=== PATIENT | female | born 2000 | race Two or more races ===

== ENCOUNTER 2023-10-21 15:51 | Emergency (ER) | payer BC, SELFPAY ==
--- NOTE | 2023-10-21 | ECG_ITS ---
Test Reason : SHORTNESS OF BREATH Blood Pressure : / mmHG Vent. Rate : 095 BPM Atrial Rate : 095 BPM P-R Int : 144 ms QRS Dur : 074 ms QT Int : 334 ms P-R-T Axes : 040 019 000 degrees QTc Int : 419 ms Normal sinus rhythm Normal ECG No previous ECGs available Referred By: Generic ED Physician Electronically Signed By:Dexter Kan
--- NOTE | ~2023-10-21 | XR_ITS ---
EXAMINATION: XR CHEST CLINICAL INFORMATION: Cough and fevers. COMPARISON: None available. TECHNIQUE: Frontal view of the chest was obtained. FINDINGS: The cardiomediastinal silhouette is within normal limits. Lungs mildly hypoexpanded. No consolidation or effusion. No pneumothorax. XR/XR chest 1V IMPRESSION: Clear lungs. No focal pneumonia.
[2023-10-21 16:00] VITALS: BP 106/61; BP 110/78; PULSE 88; PULSE 93; RESP 17; TEMP 37.1; O2SAT 92; O2SAT 99; BMI 33.1
[2023-10-21 16:30] VITALS: BP 103/58; BP 116/70; PULSE 104; PULSE 98
[2023-10-21 16:31] LABS: MANUAL DIFF FLAG NO
[2023-10-21 16:32] VITALS: BP 102/61; PULSE 108
--- NOTE | 2023-10-21 16:33 | PC.NURSE ---
Orthostatic blood pressures done with patient, did well with laying down and sitting but felt as if she was going to pass out when standing.
[2023-10-21 16:34] LABS: Basophils Percent Auto 0.2 % (0-2); Eosinophils Percent Auto 0.4 % (0-4); Hematocrit 33.6 % (37.0-47.0); Hemoglobin 11.3 g/dl (12.0-16.0); Imm Gran Abs Auto 0.03 X10*3/uL (0.00-0.03); Imm Gran Pct Auto 0.3 % (0.0-0.4); Lymphocytes Absolute Auto 1.5 X10*3/uL (1.2-4.9); Lymphocytes Percent Auto 15.7 % (20-40); Mean Corpuscular HGB Conc 33.6 g/dl (31.0-35.0); Mean Corpuscular Hemoglobin 27.6 pg (27.0-33.0); Mean Platelet Volume 10.6 fL (9.4-12.3); Monocytes Percent Auto 10.6 % (2-11); Neutrophils Absolute Auto 6.7 x10*3/uL (2.0-8.3); Neutrophils Percent Auto 72.8 % (45-73); Platelet Count 191 X10*3/uL (160-400); Red Cell Distribution Width 12.5 % (11.0-16.0); White Blood Count 9.2 X10*3/uL (4.8-10.8)
--- NOTE | 2023-10-21 17:03 | ED_ITS ---
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 She feels weak and tired. Notes a cough with sputum that is yellow and streaked with blood at times. She denies travel, exposure, vaccines. No neck pain. Feels weak and dizzy - she tried to get up and passed out today. She currently denies head or neck pain she is not on blood thinners. She feels dizzy when she stands. She has no abdominal pain chest pain, back pain, hardware in her body. MD elicited complaint: fever Onset (ago): day(s) (3) Measured temperature: 104 F Exacerbating factors: nothing Relieving factors: acetaminophen Associated symptoms: chills, cough and nausea Treatments prior to arrival fever: none Related Data Previous Rx's Medication Instructions Recorded amoxicillin 875 mg-potassium 1 tab PO BID #13 tabs 10/21/23 clavulanate 125 mg tablet Allergies Allergy/AdvReac Type Severity Reaction Status Date / Time No Known Allergies Allergy Verified 10/21/23 16:05 Review of Systems 2 Review of Systems: Constitutional : pos Fever, pos Chills, pos Fatigue ENT/Mouth : pos sore throat, pos Rhinorrhea Eyes: No Eye Pain, No Swelling, No Redness Cardiovascular : No Chest Pain, No SOB, No Dyspnea on Exertion Respiratory : pos Cough, pos Sputum Gastrointestinal : pos Nausea, No Vomiting, No Diarrhea, No abdominal Pain Genitourinary : No Dysuria, No Urinary Frequency, No Hematuria, Musculoskeletal : No joint pain, No Myalgias, No Joint Swelling Skin : No Skin Lesions, No rash Neuro : No Weakness, No Numbness, No Dizziness, no Headache, pos syncope Psych : No Anxiety/Panic, No Depression Heme/Lymph: No Bruising, No Bleeding,No Lymphadenopathy Endocrine : No Polyuria, No Polydipsia All other systems reviewed and are negative [facility] Past Medical History Attestation statement: The following information was validated with the patient. Medical History PCOS (polycystic ovarian syndrome) Social History Social History (Updated 10/21/23 @ 17:23 by Noelle Luz DO) Patient Tobacco Use Status: Never used Tobacco Smoked in Last 30 Days: Yes Use of substances other than those prescribed or required for medical reasons: No Advance Directives: No Advance Directives Information Provided: No Patient : No Physical Exam 2 Vital Signs: Vital Signs: Last Vital Signs Temp 98.1 F 10/21/23 21:34 Pulse 79 10/21/23 21:34 Resp 16 10/21/23 21:34 BP 118/69 10/21/23 21:34 Pulse Ox 98 10/21/23 21:34 O2 Del Method Room Air 10/21/23 21:34 BMI result Body Mass Index 33.1 Appearance: Alert. Oriented X3. No acute distress. Eyes: Pupils equal, round and reactive to light. ENT: Pharynx erythema with moderate tonsilar swelling and exudates white on tonsils Neck: Normal inspection. Neck supple. no meningeal signs CVS: Normal heart rate and rhythm. Pulses normal. Respiratory: No respiratory distress. Breath sounds normal. Abdomen: Soft and nontender. Skin: Skin warm and dry. Normal skin color. Normal skin turgor. Extremities: No lower extremity edema. No calf ttp Neuro: Oriented X 3. No motor deficit. No sensory deficit. Course Course Course Narrative: at this time will treat for strep throat clinically looks like strep and has strep odor she also reports sore throat. Medications Administered Discontinued Medications Generic Name Dose Route Start Last Admin Trade Name Freq PRN Reason Stop Dose Admin Potassium Chloride 10 meq in 100 mls @ 100 mls/hr 10/21/23 17:08 10/21/23 18:43 Potassium Chloride/H20 IV 10/21/23 18:07 Infused ONCE ONE Infusion Sodium Chloride 1,000 mls @ 999 mls/hr 10/21/23 17:15 10/21/23 18:44 Ns IV 10/21/23 18:15 Infused .Q1H1M WEN Infusion Ketorolac Tromethamine 15 mg 10/21/23 17:09 10/21/23 17:51 Ketorolac Tromethamine 15 Mg/Ml Vial IVPUSH 10/21/23 17:10 15 mg ONCE ONE Administration Potassium Chloride 40 meq 10/21/23 17:08 10/21/23 17:52 Potassium Chloride Packet 20 Meq Packet PO 10/21/23 17:09 40 meq ONCE ONE Administration Medical Decision Making Medical Decision Making [facility] Narrative: 23 yo female no sig PMH here with c/o fevers x 3 days without meningeal signs, IVDA, hardware in body, , sick contacts - at this time has cough and URI symptoms also felt weak and had syncopal episode has no signs of head or neck trauma will need EKG, labs, mono strep and viral panel testing. I have ordered fluids and toradol. No CP/SOB to suggest ACS or PE not on OCPs Differential Diagnosis Differential Diagnoses: The differential diagnosis associated with the presentation includes viral syndrome, mono, strep, pneumonia Admission/Observation Consideration of admission/observation: Escalation of care including admission/observation considered no fevers, here, viral panel negative, CXR negative, no WBC count, no obvious source at this time - possible mild UTI though no urinary symptoms and has epi cells feels much better Lab Data [facility] Lab Attestation statement: I reviewed the patient's lab results. 10/21/23 16:27 10/21/23 16:27 Labs: Lab Results 10/21/23 10/21/23 10/21/23 Range/Units 16:27 17:42 21:26 WBC 9.2 (4.8-10.8) X10*3/uL RBC 4.10 L (4.20-5.50) X10*6/uL Hgb 11.3 L (12.0-16.0) g/dl Hct 33.6 L (37.0-47.0) % MCV 82.0 (80.0-98.0) fL MCH 27.6 (27.0-33.0) pg MCHC 33.6 (31.0-35.0) g/dl RDW 12.5 (11.0-16.0) % Plt Count 191 (160-400) X10*3/uL MPV 10.6 (9.4-12.3) fL Immature Gran % (Auto) 0.3 (0.0-0.4) % Neut % (Auto) 72.8 (45-73) % Lymph % (Auto) 15.7 L (20-40) % [place] % (Auto) 10.6 (2-11) % Eos % (Auto) 0.4 (0-4) % Baso % (Auto) 0.2 (0-2) % Lymph # (Auto) 1.5 (1.2-4.9) X10*3/uL [place] # (Auto) 1.0 (0.1-1.2) X10*3/uL Eos # (Auto) 0.0 (0.0-0.4) X10*3/uL Baso # (Auto) 0.0 (0.0-0.2) X10*3/uL Abs Immat Gran (auto) 0.03 (0.00-0.03) X10*3/uL Absolute Neuts (auto) 6.7 (2.0-8.3) x10*3/uL Absolute Nucleated RBC 0.000 (0.0-0.012) X10*3/uL Nucleated RBC % (auto) 0.0 (0.0-0.2) /100WBC Sodium 137 (135-145) mmol/L Potassium 3.0 L (3.3-5.1) mmol/L Chloride 104 (96-108) mmol/L Carbon Dioxide 26 (22-29) mmol/L Anion Gap 10 L (12-20) BUN 14 (9-16) mg/dL Creatinine 0.75 (0.5-1.4) mg/dL Estim Creat Clear Calc 121.4 Estimated GFR > 60 Random Glucose 102 (60-115) mg/dL Calcium 9.7 (8.4-10.2) mg/dL Magnesium 2.0 (1.6-2.6) mg/dL Total Bilirubin 0.7 (0.0-1.0) mg/dL Direct Bilirubin 0.3 (0.0-0.5) mg/dL AST 16 (5-31) U/L ALT 9 (0-31) U/L Alkaline Phosphatase 64 (39-117) U/L Total Creatine Kinase 40 (26-140) U/L Total Protein 7.1 (6.5-8.0) g/dL Albumin 4.3 (3.5-5.0) g/dL Lipase 16 (8-78) U/L Urine Color Yellow Urine Appearance Cloudy Urine pH 6.5 (5.0-9.0) Ur Specific [place] 1.015 (1.005-1.025) Urine Protein Trace (Neg-Trace) mg/dL Urine Glucose (UA) Negative (Negative) mg/dL Urine Ketones 40 (Negative) mg/dL Urine Blood Small (1+) H (Negative) Urine Nitrite Negative (Negative) Ur Leukocyte Esterase Negative (Negative) Urine RBC 6-10 H (0-2) /HPF Urine WBC 6-10 H (0-5) /HPF Ur Squamous Epith Cells 6-10 (0-2) /HPF Urine Bacteria 3+ (None Seen) Hyaline Casts 0-2 (0-2) /LPF Monoscreen Negative (Negative) Influenza Type A (PCR) NEGATIVE (Negative) Influenza Type B (PCR) NEGATIVE (Negative) RSV RNA Qual (PCR) NEGATIVE (Negative) SARS-CoV-2 RNA (RT-PCR) NEGATIVE (Negative) S. pyogenes GrpA GIOVANNA Negative (Negative) Independent Interpretation I performed an independent interpretation of an: EKG and Plain X-Ray (no pneumonia) Interpretation: Rate: 85 Rhythm: NSR [place]: normal Normal P waves. Normal RUBY. Normal QRS complex. ST T wave : inverted t wave III, no LEIGHANN qTC: normal prior studies: no acute ischemia The study has been interpreted contemporaneously by me. . Radiology Impression Discussion of test interpretation with radiology: I have reviewed the radiologist's reading. Independent Historian Clinical information obtained from an independent historian. History obtained from or confirmed by: EMS Prescription Management I considered prescription management with: Antibiotic Discharge Plan Discharge Clinical Impression: Acute febrile illness, Acute hypokalemia Pharyngitis Qualifiers: Pharyngitis/tonsillitis etiology: unspecified etiology Qualified Code(s): J02.9 - Acute pharyngitis, unspecified Patient Disposition: Home, Self-Care Instructions: Pharyngitis (ED), Fever in Adults (ED), Hypokalemia (ED) Additional Instructions: potassium was mildly low we repleted it. drink fluids and eat a banana a day. you tested negative for mono, flu, covid and RSV. your exam is concerning for strep throat. while on antibiotic please take an over the counter antibiotic. if no improvement or worse in the next 24 to 48 hours please return. On amoxicillin-clavulanate, softer bowel movements are to be expected. Call your provider if you move your bowels more than 4 times a day, your bowel movements are almost all liquid, or you get a rash.? Prescriptions: New amoxicillin-pot clavulanate 875-125 mg tablet 1 tab PO BID Qty: 13 0RF Stand Alone Forms: Work/School Release
[2023-10-21 17:07] LABS: Alanine Aminotransferase 9 U/L (0-31); Albumin Level 4.3 g/dL (3.5-5.0); Alkaline Phosphatase 64 U/L (39-117); Anion Gap 10 (12-20); Aspartate Amino Transferase 16 U/L (5-31); Bilirubin Direct 0.3 mg/dL (0.0-0.5); Bilirubin Total 0.7 mg/dL (0.0-1.0); Blood Urea Nitrogen 14 mg/dL (9-16); Calcium 9.7 mg/dL (8.4-10.2); Carbon Dioxide 26 mmol/L (22-29); Chloride 104 mmol/L (96-108); Creatinine Clr Calc Pharmacy 121.4; Estimated Glomerular Filt Rate > 60; Glucose Random 102 mg/dL (60-115); Lipase 16 U/L (8-78); Sodium 137 mmol/L (135-145); Total Protein 7.1 g/dL (6.5-8.0)
--- NOTE | 2023-10-21 17:08 | ECG_ITS ---
Test Reason : DYSPNEA Blood Pressure : / mmHG Vent. Rate : 085 BPM Atrial Rate : 085 BPM P-R Int : 144 ms QRS Dur : 066 ms QT Int : 344 ms P-R-T Axes : 050 014 009 degrees QTc Int : 409 ms Normal sinus rhythm Normal ECG When compared with ECG of 21-OCT-2023 16:17, Nonspecific T wave abnormality no longer evident in Anterior leads Referred By: Noelle Luz Electronically Signed By:Dexter Kan
[2023-10-21 17:14] LABS: Influenza A PCR NEGATIVE (Negative); Influenza B PCR NEGATIVE (Negative); Resp Syncy Virus RNA Qual PCR NEGATIVE (Negative); SARS COV2 PCR INHOUSE NEGATIVE (Negative)
[2023-10-21 17:27] VITALS: TEMP 40
[2023-10-21] MEDS: Potassium Chloride/H20 10 MEQ/100 ML PIGGYBACK 100 MEQ IV (17:45)
[2023-10-21] MEDS: Ketorolac Tromethamine 15 MG/ML VIAL IVPUSH (17:51)
[2023-10-21] MEDS: 0.9 % Sodium Chloride 1,000 ML 999 ML IV (17:52)
[2023-10-21] MEDS: Potassium Chloride Packet 20 MEQ PACKET 40 MEQ PO (17:52)
[2023-10-21 19:05] VITALS: O2SAT 97
[2023-10-21 19:10] LABS: IDNOW Serial# 08D9AD1C; Strep A Nucleic Acid Negative (Negative)
[2023-10-21 19:39] LABS: Monotest Negative (Negative)
[2023-10-21 21:34] VITALS: BP 118/69; PULSE 79; RESP 16; TEMP 36.7; O2SAT 98
[2023-10-21 21:34] LABS: Appearance Urine Cloudy; Color Urine Yellow; Glucose Urine UA Negative (Negative); Leukocyte Esterase Urine Negative (Negative); Nitrite Urine Negative (Negative); PH 6.5 (5.0-9.0); Specific Gravity - Urine 1.015 (1.005-1.025); UMIC TRIGGER UACC YES; Urine Blood Small (1+) (Negative); Urine Ketones 40 mg/dL (Negative); Urine Protein Trace mg/dL (Neg-Trace)
[2023-10-21 21:39] LABS: Bacteria Urine 3+ (None Seen); Hyaline Casts Urine 0-2 /LPF (0-2); UACC Culture Trigger YES
[2023-10-21] MEDS: Amoxicillin/Potassium Clav 875 MG TABLET PO (22:41)
== END 2023-10-21 22:50 | disposition home or self-care (01) ==
PROVIDERS: Emergency Provider Emergency Medicine
DX: J02.9 Acute pharyngitis, unspecified (principal); E87.6 Hypokalemia; R50.9 Fever, unspecified; Z20.822 Contact with and (suspected) exposure to COVID-19; Z20.828 Contact with and (suspected) exposure to other viral communicable diseases
CPT/HCPCS: 0241U; 36415; 71045; 80048; 80076; 81001; 82550; 83690; 83735; 85025; 86308; 87086; 87651; 93005; 96365; 96375; 99285; J1885; J3480

== ENCOUNTER → 2023-10-21 16:17 | Outpatient (BNV) | payer SELFPAY | PROVIDERS: Emergency Provider Emergency Medicine; Visit Provider Internal Medicine Cardiovascular Disease | DX: R06.02 Shortness of breath (principal); R50.9 Fever, unspecified | CPT/HCPCS: 93010 ==

== ENCOUNTER 2025-01-09 12:18 | Inpatient (IN) | payer BC, SELFPAY ==
--- NOTE | ~2025-01-09 | CT_ITS ---
CLINICAL HISTORY: abdominal pain CT abdomen and pelvis with contrast Comparison: US/CT/SR - US PELVIC COMPLETE - 01/09/25 15:29 EST US/SR - US ABDOMEN LIMITED - 01/09/25 15:12 EST Findings: No consolidation or effusion. The gallbladder and solid organs are within normal limits. No hydronephrosis or hydroureter. No bowel obstruction, pneumoperitoneum, or pneumatosis. Scattered subcentimeter short axis lymph nodes are identified within the central mesentery and also within the mesentery adjacent to the cecum. There is scattered colonic diverticulosis. No CT evidence for acute diverticulitis. Pelvic contents unremarkable. No bladder wall thickening. Normal appendix. No acute fracture visualized. IMPRESSION: 1. Scattered subcentimeter short axis lymph nodes identified within the central mesentery and also within the mesentery adjacent to the cecum. These findings are nonspecific but may be seen in the setting of mesenteric adenitis. No other CT evidence for an acute inflammatory process identified within the abdomen or pelvis. 2. Colonic diverticulosis. No CT evidence for acute diverticulitis This document has been electronically signed by: Clarke Morillo MD on 01/09/2025 21:28:54
--- NOTE | ~2025-01-09 | NM_ITS ---
EXAMINATION: NM BILIARY TRACT CLINICAL INFORMATION: Possibly calculus cholecystitis. Right upper quadrant pain. COMPARISON: CT abdomen and pelvis with IV contrast 01/01/2025 TECHNIQUE: Allowing intravenous administration of 5 mCi of technetium 99m mebrofenin, imaging over the right upper quadrant was obtained up to 60 minutes. At 60 minutes 1.6 mcg of CCK was administered over 30 minutes via pump and imaging obtained up to 30 minutes. FINDINGS: There is normal hepatic uptake without focal defects. CBD is visualized 60 minutes. Gallbladder is visualized by 1 to 18 minutes. Post-CCK there is small bowel visualized by 21 minutes. Gallbladder ejection fraction post-CCK At 10 minutes is 3%, At 20 minutes is 3%, At 30 minutes is 9%. NM/NM hepatobiliary w pharm IMPRESSION: Abnormal gallbladder ejection fraction of 9% at 30 minutes. Patent cystic duct and CBD. Normal hepatic uptake. Electronically signed by: Bulmaro Naqvi MD 01/12/2025 04:58 PM [facility] [place]
--- NOTE | ~2025-01-09 | US_ITS ---
EXAMINATION: US ABDOMEN LIMITED CLINICAL INFORMATION: Right upper quadrant pain.. COMPARISON: None available. TECHNIQUE: Real-time imaging of the right upper quadrant abdominal viscera. FINDINGS: PANCREAS: No peripancreatic fluid collections. LIVER: Liver measures 13 cm. Normal echotexture. No nodular surface. No solid or cystic lesion. No intrahepatic biliary ductal dilatation.. GALLBLADDER: Fluid-filled contracted. No pericholecystic fluid collection or gallbladder wall thickening. COMMON BILE DUCT: 3 mm.. RIGHT KIDNEY: 12 cm. Normal echotexture. No solid or cystic lesion. No hydronephrosis. Normal renal cortical thickness. Normal flow on color Doppler interrogation of the renal hilum.. FREE FLUID: None. US/US abdomen limited IMPRESSION: No cholelithiasis. No hydronephrosis right kidney. No ascites. Negative exam. Electronically signed by: Zaki Taylor MD 01/09/2025 03:51 PM [facility] [place]
--- NOTE | ~2025-01-09 | US_ITS ---
EXAMINATION: US PELVIS CLINICAL INFORMATION: Pelvic pain, history of PCOS. COMPARISON: None available. TECHNIQUE: Ultrasound of the pelvis is performed using both transabdominal technique only with Doppler. Transvaginal imaging was refused by the patient. FINDINGS: Uterus: The uterus is anteverted and anteflexed, and measures 6.3 x 2.0 x 3.5 cm. Cervix is normal in appearance. The double wall endometrial thickness is 0.3 mm. The uterus is smooth in contour and has normal myometrial echogenicity. No visible fibroid. Adnexa: Both ovaries are visualized. There is normal color flow to the adnexa. There is no ovarian torsion. There is no pelvic ascites or fluid collection. There are no adnexal masses. Right ovary measures 1.6 x 1.7 x 2.0 cm. Volume = 2.7 mL. Normal transabdominal sonographic appearance. Left ovary measures 2.4 x 1.5 x 1.5 cm. Volume = 2.7 mL. Normal transabdominal sonographic appearance. US/US pelvic complete IMPRESSION: Normal transabdominal pelvic ultrasound. Electronically signed by: Tk Kapoor MD 01/09/2025 03:54 PM [facility] [place]
--- NOTE | ~2025-01-09 | MR_ITS ---
CLINICAL HISTORY: abdominal pain, elevated LFTS MRCP WITHOUT GADOLINIUM Comparison: CT/SR - CT ABDOMEN PELVIS W IV CON - 01/09/25 20:31 EST US/SR - US ABDOMEN LIMITED - 01/09/25 15:12 EST Findings: No bile duct dilatation or choledocholithiasis. Common bile duct 4.6 mm diameter. No intraluminal gallbladder filling defect. There is pericholecystic fluid and edema. Pancreas and pancreatic duct are unremarkable. Remaining solid organs and abdominal aorta unremarkable. No bowel obstruction. No focal bony abnormality. IMPRESSION: 1. No biliary ductal dilatation evidence for choledocholithiasis. 2. Pericholecystic fluid and edema with no evidence for choledocholithiasis. The possibility of acalculous cholecystitis is raised. This document has been electronically signed by: Catie Barron DO on 01/10/2025 15:00:14
[2025-01-09 12:34] VITALS: BP 130/70; PULSE 50
[2025-01-09 12:54] VITALS: BP 84/46; PULSE 77; RESP 20; TEMP 36.6; O2SAT 100; BMI 31.2
--- NOTE | 2025-01-09 12:59 | ECG_ITS ---
Test Reason : FALL Blood Pressure : */* mmHG Vent. Rate : 76 BPM Atrial Rate : 76 BPM P-R Int : 162 ms QRS Dur : 70 ms QT Int : 376 ms P-R-T Axes : 50 37 19 degrees QTcB Int : 423 ms Normal sinus rhythm with sinus arrhythmia Normal ECG When compared with ECG of 21-Oct-2023 19:00, No significant change was found Referred By: Generic ED Physician Electronically Signed By: Dexter Kan
[2025-01-09 13:20] LABS: MANUAL DIFF FLAG NO
[2025-01-09 13:22] LABS: Basophils Percent Auto 0.4 % (0-2); Eosinophils Absolute Auto 0.1 X10*3/uL (0.0-0.4); Eosinophils Percent Auto 1.2 % (0-4); Hematocrit 36.4 % (37.0-47.0); Hemoglobin 11.9 g/dl (12.0-16.0); Imm Gran Abs Auto 0.02 X10*3/uL (0.00-0.03); Imm Gran Pct Auto 0.3 % (0.0-0.4); Lymphocytes Absolute Auto 1.4 X10*3/uL (1.2-4.9); Lymphocytes Percent Auto 19.1 % (20-40); Mean Corpuscular HGB Conc 32.7 g/dl (31.0-35.0); Mean Corpuscular Hemoglobin 27.4 pg (27.0-33.0); Mean Corpuscular Volume 83.9 fL (80.0-98.0); Mean Platelet Volume 10.9 fL (9.4-12.3); Monocytes Absolute Auto 0.7 X10*3/uL (0.1-1.2); Neutrophils Absolute Auto 5.3 x10*3/uL (2.0-8.3); Platelet Count 234 X10*3/uL (160-400); Red Blood Count 4.34 X10*6/uL (4.20-5.50); Red Cell Distribution Width 13.2 % (11.0-16.0); White Blood Count 7.5 X10*3/uL (4.8-10.8)
[2025-01-09 14:05] LABS: Albumin Level 3.8 g/dL (3.5-5.0); Alkaline Phosphatase 141 U/L (39-117); Anion Gap 11 (12-20); Aspartate Amino Transferase 1229 U/L (5-31); Bilirubin Total 4.3 mg/dL (0.0-1.0); Blood Urea Nitrogen 8 mg/dL (9-16); Calcium 8.7 mg/dL (8.4-10.2); Carbon Dioxide 25 mmol/L (22-29); Chloride 111 mmol/L (96-108); Estimated Glomerular Filt Rate > 60; Glucose Random 91 mg/dL (60-115); HCG Quantitative < 2 mIU/mL; Potassium 4.1 mmol/L (3.3-5.1); Sodium 143 mmol/L (135-145); Total Protein 6.8 g/dL (6.5-8.0)
[2025-01-09] MEDS: Ketorolac Tromethamine 30 MG/ML VIAL IVPUSH (14:11)
[2025-01-09] MEDS: 0.9 % Sodium Chloride 1,000 ML 999 ML IV (14:12)
[2025-01-09 14:15] LABS: Influenza A PCR NEGATIVE (Negative); Influenza B PCR NEGATIVE (Negative); Resp Syncy Virus RNA Qual PCR NEGATIVE (Negative); SARS COV2 PCR INHOUSE NEGATIVE (Negative)
--- NOTE | 2025-01-09 14:19 | PC.NURSE ---
patient visitor noted to be altering rate of patient normal saline gtt, educated visitor on not touching medical equipment, patient bp noted to be low, educated on flow rate and need for hydration to increase bp. security notified.
[2025-01-09 14:38] LABS: Color Urine Dark Yellow; Glucose Urine UA Negative (Negative); Leukocyte Esterase Urine Small (1+) (Negative); Nitrite Urine Negative (Negative); PH 7.5 (5.0-9.0); Specific Gravity - Urine <= 1.005 (1.005-1.025); UMIC TRIGGER UACC YES; Urine Blood Large (3+) (Negative); Urine Ketones 15 mg/dL (Negative); Urine Protein 100 (2+) mg/dL (Neg-Trace)
[2025-01-09 14:39] LABS: Appearance Urine Hazy
[2025-01-09 14:41] LABS: Alanine Aminotransferase 2133 U/L (0-31)
[2025-01-09 14:44] LABS: Bacteria Urine 1+ (None Seen); Hyaline Casts Urine 0-2 /LPF (0-2); RBC Urine >20 /HPF (0-2); Squamous Epithelial Cell Urine 0-2 /HPF (0-2); UACC Culture Trigger YES
--- NOTE | 2025-01-09 14:44 | ED_ITS ---
HPI - General Adult General Chief complaint: Syncope Stated complaint: FEVER, MULT SYNCOPAL EPISODES PER EMS Time Seen by Provider: 01/09/25 13:31 Source: patient, RN notes reviewed and old records reviewed Mode of arrival: EMS Limitations: no limitations History of Present Illness ED Provider: Riri COURTNEY narrative: 24-year-old female who with past medical history significant for PCOS presents for evaluation of nausea vomiting. The patient reportedly had multiple syncopal episodes this morning when she was trying to go to the bathroom She reports that she has been vomiting for the last few days and had some abdominal discomfort over last 2 days as well. She was seen GI several times due to ongoing GI as she was on her still being worked up. She does not have a diagnosis of IBS, IBD, Crohn's but she was told she may have one or more of these. The patient denies any chest pain or shortness of breath. She complains of lower abdominal pain which she attributes to ?pelvic cramping. She has not had her menstrual cycle since August and is irregular due to PCOS. She states that her menstrual cycle started this morning Denies any abnormal vaginal discharge or concern for sexually transmitted infections and she has not had any new sexual partners She has had previous colonoscopies and endoscopies but has never had any abdominal surgeries She denies any Tylenol use Related Data Home Medications ?Medication ?Instructions ?Recorded ?Confirmed No Known Home Meds 01/10/25 01/10/25 Allergies Allergy/AdvReac Type Severity Reaction Status Date / Time amoxicillin Allergy Abdominal Verified 01/09/25 12:58 Pain Review of Systems 2 Constitutional: Constitutional: Denies anorexia, Denies body ache(s), Denies chills, Denies fever(s), Denies frequent falls, Denies headache(s), Reports malaise, Reports weakness and Reports weight loss Eyes: Eyes: Denies blurry vision ENT: Denies vertigo, Denies dizziness and Denies headache(s) Cardiovascular: Cardiovascular: Denies chest pain, Reports syncope and Denies dyspnea Respiratory: Respiratory: Denies dyspnea Gastrointestinal: Gastrointestinal: Reports abdominal pain, Denies diarrhea, Denies loose stools, Reports nausea and Reports vomiting Genitourinary: Genitourinary: Denies vaginal discharge Musculoskeletal: Musculoskeletal: Denies back pain Integumentary/Breasts: Skin/Breast: Denies rash Neurologic: Denies vertigo, Denies dizziness, Reports syncope, Denies frequent falls, Denies headache(s) and Reports weakness PMFSH Past Medical History Medical History Mood disorder Ulcerative colitis PCOS (polycystic ovarian syndrome) Social History Social History Household Members: None Housing: Other Do you presently have visiting nurse or other home services: No Patient Tobacco Use Status: Current everyday Tobacco user Tobacco use type: Cigarette service: No Physical Exam ED Vital Signs: Vital Signs - 24 hr 01/09/25 12:54 01/09/25 15:06 01/09/25 19:03 Temperature 97.8 F 97.9 F Pulse Rate 77 87 72 Respiratory Rate 20 20 18 Blood Pressure 84/46 L 117/79 120/76 Pulse Oximetry 100 98 100 Oxygen Delivery Method Room Air Room Air Room Air BMI result Body Mass Index 31.2 Const General: healthy appearing, comfortable, no acute distress, alert and awake Nutritional Appearance: well nourished Orientation/consciousness: patient oriented x3 HENMT Head: Yes normocephalic and Yes atraumatic Eyes Eyelids: Yes eyelids normal Conjunctivae: conjunctivae normal Sclerae: sclerae normal Corneas: corneas normal Pupils: Equal, round and reactive pupils present EOM: EOMs intact bilaterally Neck Neck: Yes full ROM Resp Effort & Inspection: normal respiratory effort, able to speak in complete sentences and not labored GI Inspection: No distended Palpation (GI): Soft to palpation, not firm, Tenderness to palpation present (GI) in the LLQ, in the RLQ and suprapubicly; not in the LUQ, not in the RUQ and Tsark's sign negative, no guarding and not rigid Skin General skin exam: elasticity normal Neuro General: patient oriented x3 Cranial nerves: Yes Equal, round and reactive pupils present and Yes Bilaterally intact EOM present Cognition (Neuro): normal cognition Extrem Other: Moving all extremities well without any obvious deformities Course Reevaluation(s) Reevaluation #1: CT scan shows mesenteric adenitis but no other significant findings. I restart to GI again, Dr. Vazquez who has no further recommendations at this time but agrees with admission to trend LFTs. Time: 21:34 Medications Administered Generic Name Dose Route Start Last Admin Trade Name Matt PRN Reason Stop Dose Admin Ceftriaxone Sodium 1 gm 01/09/25 23:45 01/11/25 00:04 Ceftriaxone Sodium 1 Gm Vial IVPUSH 1 gm Q24H WEN Administration Metronidazole 500 mg in 100 mls @ 100 mls/hr 01/10/25 20:00 01/11/25 04:15 Flagyl IV Infused Q8H WEN Infusion Melatonin 6 mg 01/09/25 22:03 01/10/25 02:51 Melatonin 3 Mg Tablet PO 6 mg BEDTIME PRN Administration Insomnia Morphine Sulfate 2 mg 01/10/25 17:29 01/10/25 18:14 Morphine Sulfate 2 Mg/Ml Cartridge IVPUSH 2 mg Q6H PRN Administration Pain, Severe (Pain Scale 7-10) Protocol Ondansetron HCl 4 mg 01/09/25 22:03 01/10/25 22:58 Ondansetron Hcl 4 Mg/2 Ml Vial IVPUSH 4 mg Q8H PRN Administration Nausea and Vomiting Sodium Chloride 3 ml 01/10/25 00:00 01/11/25 08:15 0.9 % Sodium Chloride Flush 3 Ml Syringe IVFLUSH Not Given QSHIFT WEN Discontinued Medications Generic Name Dose Route Start Last Admin Trade Name Matt PRN Reason Stop Dose Admin Sodium Chloride 1,000 mls @ 999 mls/hr 01/09/25 14:00 01/09/25 15:05 Ns IV 01/09/25 15:00 Infused .Q1H1M WEN Infusion Lactated Ringer's 1,000 mls @ 999 mls/hr 01/09/25 22:15 01/10/25 07:15 Lr IV 01/09/25 23:15 Infused .Q1H1M WEN Infusion Lactated Ringer's 1,000 mls @ 999 mls/hr 01/11/25 07:15 01/11/25 10:41 Lr IV 01/11/25 08:15 Infused .Q1H1M WEN Infusion Iohexol 100 ml 01/09/25 20:40 01/09/25 20:40 Iohexol 350 Mg/Ml 100 Ml Infus..Btl IV 01/09/25 20:41 85 ml ONCE ONE Administration Ketorolac Tromethamine 30 mg 01/09/25 13:55 01/09/25 14:11 Ketorolac Tromethamine 30 Mg/Ml Vial IVPUSH 01/09/25 13:56 30 mg ONCE ONE Administration Ondansetron HCl 4 mg 01/09/25 20:16 01/09/25 21:07 Ondansetron Hcl 4 Mg/2 Ml Vial IVPUSH 01/09/25 20:17 4 mg ONCE ONE Administration Ondansetron HCl 4 mg 01/11/25 07:04 01/11/25 08:15 Ondansetron Hcl 4 Mg/2 Ml Vial IVPUSH 01/11/25 07:05 4 mg ONCE ONE Administration Oxycodone HCl 5 mg 01/10/25 11:18 01/10/25 11:59 Oxycodone Hcl Immed Release 5 Mg Tablet PO 5 mg Q6H PRN Administration Pain, Severe (Pain Scale 7-10) Pantoprazole Sodium 40 mg 01/09/25 20:16 01/09/25 21:07 Pantoprazole Sodium 40 Mg/10 Ml Vial IVPUSH 01/09/25 20:17 40 mg ONCE ONE Administration Tramadol HCl 25 mg 01/10/25 02:33 01/10/25 02:51 Tramadol Hcl 50 Mg Tablet PO 01/10/25 02:34 25 mg ONCE ONE Administration Medical Decision Making Medical Decision Making MDM Narrative: 24-year-old female with past medical history significant for PCOS presents for evaluation of mostly vomiting with some mild abdominal pain. She also had 2 syncopal episodes this morning while having bowel movements. She was hypotensive on arrival as low as 84/46 next suspect this is why she had a syncopal episode. Her blood pressure has improved to 1 17/79. She does appear dry we will give her an additional L of IV fluids after the when she got from EMS. She has mostly lower abdominal pain and a history of PCOS we will get an ultrasound to rule out ovarian torsion. The patient denies any STI concerns. Her labs are significant for a significant transaminitis with the total bilirubin of 4.3. She was not have any right upper quadrant tenderness on exam. Lower suspicion for obstructive biliary disease. However, we will still obtain a right upper quadrant ultrasound. I did order hepatitis panel given her recent vomiting and weakness. Differential Diagnosis Differential Diagnoses: The differential diagnosis associated with the presentation includes Hepatitis A Viral enteritis Choledocholithiasis Acute cholecystitis Admission/Observation Consideration of admission/observation: Escalation of care including admission/observation considered Consult Healthcare Provider Management of the patient was discussed with: Community Organization Director (GI, Dr. Vazquez, recommends CT scan and mono screen) Lab Data MDM Lab Attestation statement: I reviewed the patient's lab results. No leukocytosis. The patient has a mild anemia which is consistent with her labs dating back to 10/21/2023. She has no significant left shift. Chemistries are significant for a total bilirubin of 4.3, AST of 1229, ALT of 2133, an alk phos of 141. No significant electrolyte abnormalities warranting intervention 01/10/25 05:53 01/11/25 05:50 Labs: Lab Results 01/09/25 01/09/25 01/09/25 Range/Units 13:16 14:26 15:18 WBC 7.5 (4.8-10.8) X10*3/uL RBC 4.34 (4.20-5.50) X10*6/uL Hgb 11.9 L (12.0-16.0) g/dl Hct 36.4 L (37.0-47.0) % MCV 83.9 (80.0-98.0) fL MCH 27.4 (27.0-33.0) pg MCHC 32.7 (31.0-35.0) g/dl RDW 13.2 (11.0-16.0) % Plt Count 234 (160-400) X10*3/uL MPV 10.9 (9.4-12.3) fL Immature Gran % (Auto) 0.3 (0.0-0.4) % Neut % (Auto) 70.0 (45-73) % Lymph % (Auto) 19.1 L (20-40) % [place] % (Auto) 9.0 (2-11) % Eos % (Auto) 1.2 (0-4) % Baso % (Auto) 0.4 (0-2) % Lymph # (Auto) 1.4 (1.2-4.9) X10*3/uL Price # (Auto) 0.7 (0.1-1.2) X10*3/uL Eos # (Auto) 0.1 (0.0-0.4) X10*3/uL Baso # (Auto) 0.0 (0.0-0.2) X10*3/uL Abs Immat Gran (auto) 0.02 (0.00-0.03) X10*3/uL Absolute Neuts (auto) 5.3 (2.0-8.3) x10*3/uL Absolute Nucleated RBC 0.000 (0.0-0.012) X10*3/uL Nucleated RBC % (auto) 0.0 (0.0-0.2) /100WBC Sodium 143 (135-145) mmol/L Potassium 4.1 (3.3-5.1) mmol/L Chloride 111 H (96-108) mmol/L Carbon Dioxide 25 (22-29) mmol/L Anion Gap 11 L (12-20) BUN 8 L (9-16) mg/dL Creatinine 0.60 (0.5-1.4) mg/dL Estim Creat Clear Calc 146.0 Estimated GFR > 60 Random Glucose 91 (60-115) mg/dL Calcium 8.7 D (8.4-10.2) mg/dL Total Bilirubin 4.3 H (0.0-1.0) mg/dL Direct Bilirubin 3.1 H (0.0-0.5) mg/dL AST 1229 H (5-31) U/L ALT 2133 H (0-31) U/L Alkaline Phosphatase 141 H (39-117) U/L Total Protein 6.8 (6.5-8.0) g/dL Albumin 3.8 (3.5-5.0) g/dL Beta HCG, Quant < 2 mIU/mL Urine Color Dark Yellow Urine Appearance Hazy Urine pH 7.5 (5.0-9.0) Ur Specific [place] <= 1.005 (1.005-1.025) Urine Protein 100 (2+) H (Neg-Trace) mg/dL Urine Glucose (UA) Negative (Negative) mg/dL Urine Ketones 15 (Negative) mg/dL Urine Blood Large (3+) H (Negative) Urine Nitrite Negative (Negative) Ur Leukocyte Esterase Small (1+) H (Negative) Urine RBC >20 H (0-2) /HPF Urine WBC 11-20 H (0-5) /HPF Ur Squamous Epith Cells 0-2 (0-2) /HPF Urine Bacteria 1+ (None Seen) Hyaline Casts 0-2 (0-2) /LPF Urine Opiates Screen Not Detected (Not Detect) Ur Buprenorphine Scrn Not Detected (Not Detect) ng/mL Ur Oxycodone Screen Not Detected (Not Detect) ng/mL Urine Methadone Screen Not Detected (Not Detect) ng/mL Urine Fentanyl Screen Not Detected (Not Detect) Acetaminophen < 3 (<30) mcg/mL Ur Barbiturates Screen Not Detected (Not Detect) Ur Phencyclidine Scrn Not Detected (Not Detect) Ur Amphetamines Screen Not Detected (Not Detect) U Benzodiazepines Scrn Not Detected (Not Detect) Urine Cocaine Screen Not Detected (Not Detect) U Marijuana (THC) Screen Not Detected (Not Detect) Ethyl Alcohol < 10 mg/dL Monoscreen Negative (Negative) Influenza Type A (PCR) NEGATIVE (Negative) Influenza Type B (PCR) NEGATIVE (Negative) RSV RNA Qual (PCR) NEGATIVE (Negative) SARS-CoV-2 RNA (RT-PCR) NEGATIVE (Negative) Discharge Plan Discharge Clinical Impression: Vomiting, Syncope, Transaminitis Patient Disposition: Admitted As Inpatient Interventions: Admission Worksheet (ED) Last Done: 01/09/25 23:57 Discharge Date/Time: 01/10/25 01:04
[2025-01-09 14:58] LABS: Amphetamine Screen Urine Not Detected (Not Detect); Barbiturates, Urine Not Detected (Not Detect); Benzodiazepines Screen Urine Not Detected (Not Detect); Buprenorphine Scr Not Detected (Not Detect); Cannabinoid Screen Urine Not Detected (Not Detect); Cocaine Screen Urine Not Detected (Not Detect); Fentanyl, urine Not Detected (Not Detect); Methadone Screen, Urine Not Detected (Not Detect); Opiate Screen Urine Not Detected (Not Detect); Oxycodone Screen Urine Not Detected (Not Detect); Phencyclidine Screen Urine Not Detected (Not Detect)
[2025-01-09 15:06] VITALS: BP 117/79; PULSE 87; RESP 20; O2SAT 98
[2025-01-09 15:07] LABS: Ethanol < 10 mg/dL
--- OUTSIDE RECORDS SUMMARY | 2025-01-09 15:22 | XMS_ITS ---
Author Organization Unknown Plan of Treatment Patient Care team information Name Category Status Period Participants - - Proposed period not known -
--- NOTE | 2025-01-09 15:30 | PC.NURSE ---
Report taken from Noelle Flower RN
[2025-01-09 16:18] LABS: Acetaminophen LAB < 3 mcg/mL (<30)
[2025-01-09 16:31] LABS: Bilirubin Direct 3.1 mg/dL (0.0-0.5)
[2025-01-09 17:26] LABS: Monotest Negative (Negative)
[2025-01-09 19:03] VITALS: BP 120/76; PULSE 72; RESP 18; TEMP 36.6; O2SAT 100
[2025-01-09] MEDS: iohexoL 350 MG/ML 100 ML INFUS..BTL IV (20:40)
[2025-01-09] MEDS: ondansetron HCL 4 MG/2 ML VIAL IVPUSH (21:07)
[2025-01-09] MEDS: Pantoprazole Sodium 40 MG/10 ML VIAL IVPUSH (21:07)
--- NOTE | 2025-01-09 22:05 | P.HPHOSP_ITS ---
History of Present Illness Date of Service: 01/09/25 Chief Complaint: Abdominal pain, nausea and vomiting This is a 24-year-old female with pertinent history of PCOS, ulcerative colitis not on medications, mood disorder who presents to the emergency department for evaluation of abdominal pain, nausea and vomiting. Patient states her symptoms started 5 days prior to presentation. Patient ate pasta for dinner 1 night and thinks her symptoms started soon after. She has been having epigastric pain which is constant, nonradiating and without any relieving factors. Also has been having nausea and nonbloody emesis. Unable to tolerate p.o. intake due to nausea and vomiting. Does have symptoms of gastroesophageal reflux disease. No history of liver disease in the past. States she does have ulcerative colitis which was diagnosed when she was in [place] but she is not on any medications for it. Did undergo endoscopy/colonoscopy previously. Patient also had an episode of syncope preceded by dizziness lightheadedness on the day of presentation. No chest pain or palpitations prior to the syncopal episode. No jerking movement of extremities. Denies Tylenol use. No new sexual partners. Patient also complains of change in odor of urine and urinary urgency. No fever, chills, shortness of breath, changes in bowel habits. Patient is currently only on as- needed medications for gastroesophageal reflux disease. She stopped taking fluoxetine 1 year ago. In the emergency department, AST, ALT and bilirubin found to be elevated. Gastroenterology was consulted who requested admission Review of Systems 2 Constitutional: Constitutional: Reports fatigue, Reports malaise, Reports poor appetite and Reports weakness Cardiovascular: Cardiovascular: Reports no additional cardiovascular complaints Respiratory: Respiratory: Reports no additional respiratory complaints Gastrointestinal: Gastrointestinal: Reports abdominal pain, Reports nausea and Reports vomiting Genitourinary: Genitourinary: Reports urinary urgency Neurologic: Reports weakness Endocrine: Endocrine: Reports fatigue [facility] Medical History Mood disorder Ulcerative colitis PCOS (polycystic ovarian syndrome) Pertinent family history: Mother: Psoriasis Social History Patient Tobacco Use Status: Never used Tobacco Advance Directives: No Advance Directives Information Provided: Yes Do you have a plan to hurt others: No Plan Meds Allergies Allergy/AdvReac Type Severity Reaction Status Date / Time amoxicillin Allergy Abdominal Verified 01/09/25 12:58 Pain Active Medications: Current Medications Acetaminophen (Acetaminophen 325 Mg Tablet) 650 mg PO Q6H PRN PRN Reason: Pain, Mild 1-3,fever,headache Calcium Carbonate (Calcium Carbonate 750 Mg Tab.Chew) 750 mg PO Q4H PRN PRN Reason: Heartburn Lactated Ringer's (Lr) 1,000 mls @ 999 mls/hr IV .Q1H1M [facility] Stop: 01/09/25 23:15 Magnesium Hydroxide (Milk Of Magnesia 30 Ml Oral.Susp) 30 ml PO DAILY PRN PRN Reason: Constipation Melatonin (Melatonin 3 Mg Tablet) 6 mg PO BEDTIME PRN PRN Reason: Insomnia Ondansetron HCl (Ondansetron Hcl 4 Mg/2 Ml Vial) 4 mg IVPUSH Q8H PRN PRN Reason: Nausea and Vomiting Sodium Chloride (0.9 % Sodium Chloride Flush 3 Ml Syringe) 3 ml IVFLUSH QSHIFT [facility] Physical Exam 2 Vital Signs and Narrative: Vital Signs: Last Vital Signs Temp 97.9 F 01/09/25 19:03 Pulse 72 01/09/25 19:03 Resp 18 01/09/25 19:03 BP 120/76 01/09/25 19:03 Pulse Ox 100 01/09/25 19:03 O2 Del Method Room Air 01/09/25 19:03 BMI result Body Mass Index 31.2 Young female lying in bed in no distress Neck supple, no JVD Regular rate and rhythm, S1-S2 heard Regular breath sounds bilaterally, no wheezing or crackles appreciated Abdomen soft nontender, no guarding, no rigidity Patient is awake, alert and oriented to self, place, time and person ; no focal motor deficit Psych: Normal mood No pedal edema Results Labs 01/09/25 13:16 01/09/25 13:16 Labs: Laboratory Results - last 24 hr 01/09/25 01/09/25 01/09/25 13:16 14:26 15:18 MCV 83.9 MCH 27.4 MCHC 32.7 RDW 13.2 Plt Count 234 MPV 10.9 Immature Gran % (Auto) 0.3 Neut % (Auto) 70.0 Lymph % (Auto) 19.1 L [place] % (Auto) 9.0 Eos % (Auto) 1.2 Baso % (Auto) 0.4 Lymph # (Auto) 1.4 [place] # (Auto) 0.7 Eos # (Auto) 0.1 Baso # (Auto) 0.0 Abs Immat Gran (auto) 0.02 Absolute Neuts (auto) 5.3 Absolute Nucleated RBC 0.000 Nucleated RBC % (auto) 0.0 Anion Gap 11 L Estim Creat Clear Calc 146.0 Estimated GFR > 60 Random Glucose 91 Calcium 8.7 D Total Bilirubin 4.3 H Direct Bilirubin 3.1 H AST 1229 H ALT 2133 H Alkaline Phosphatase 141 H Total Protein 6.8 Albumin 3.8 Beta HCG, Quant < 2 Urine Color Dark Yellow Urine Appearance Hazy Urine pH 7.5 Ur Specific [place] <= 1.005 Urine Protein 100 (2+) H Urine Glucose (UA) Negative Urine Ketones 15 Urine Blood Large (3+) H Urine Nitrite Negative Ur Leukocyte Esterase Small (1+) H Urine RBC >20 H Urine WBC 11-20 H Ur Squamous Epith Cells 0-2 Urine Bacteria 1+ Hyaline Casts 0-2 Urine Opiates Screen Not Detected Ur Buprenorphine Scrn Not Detected Ur Oxycodone Screen Not Detected Urine Methadone Screen Not Detected Urine Fentanyl Screen Not Detected Acetaminophen < 3 Ur Barbiturates Screen Not Detected Ur Phencyclidine Scrn Not Detected Ur Amphetamines Screen Not Detected U Benzodiazepines Scrn Not Detected Urine Cocaine Screen Not Detected U Marijuana (THC) Screen Not Detected Ethyl Alcohol < 10 Monoscreen Negative Influenza Type A (PCR) NEGATIVE Influenza Type B (PCR) NEGATIVE RSV RNA Qual (PCR) NEGATIVE SARS-CoV-2 RNA (RT-PCR) NEGATIVE Imaging Radiologist's Impressions: Impressions Abdomen Ultrasound 01/09/25 15:20 IMPRESSION: No cholelithiasis. No hydronephrosis right kidney. No ascites. Negative exam. Electronically signed by: Zaki Taylor MD 01/09/2025 03:51 PM EST RP Pelvis Ultrasound 01/09/25 15:31 IMPRESSION: Normal transabdominal pelvic ultrasound. Electronically signed by: Tk Kapoor MD 01/09/2025 03:54 PM EST RP Assessment and Plan (1) Acute hepatitis: Status: Acute Plan This is a 24-year-old female with pertinent history of PCOS, ulcerative colitis not on medications, mood disorder who presents to the emergency department for evaluation of abdominal pain, nausea and vomiting. #. Acute hepatitis with conjugated hyperbilirubinemia: Supportive care with crystalloid resuscitation. INR level less than 1.5. Tylenol level okay. Viral hepatitis serology pending. Autoimmune hepatitis panel pending. Consulted Gastroenterology, appreciate assistance #. Intractable nausea and vomiting in the setting of above. #. Syncope, likely orthostatic due to volume loss. Resuscitated with IV crystalloids. Obtain orthostatics in a.m.. Cardiac monitoring. #. Acute UTI: IV ceftriaxone while in the hospital. No sepsis #. Gastroesophageal reflux disease: IV Protonix given in the ER #. Mood disorder: No longer on fluoxetine Med rec pending DVT prophylaxis: None. Low risk. Patient is ambulatory Full code Admit as inpatient and will require two night minimum hospital stay for monitoring of liver enzymes (as above), which is not possible in a lesser acute setting. Quality Stroke Does the patient have a stroke diagnosis?: No VTE Prior VTE?: No VTE Risk Level:: Medical - moderate - high VTE Device Contraindication: Treatment Not Indicated VTE Drug Contraindication: Treatment Not Indicated
[2025-01-09 22:36] VITALS: BP 133/86; PULSE 86; RESP 16; TEMP 36.3; O2SAT 100
[2025-01-09] MEDS: Lactated Ringers 1,000 ML 999 ML IV (22:41)
[2025-01-09 22:59] LABS: INTERNATIONAL NORM RATIO 1.2 (0.9-1.1); Prothrombin Time 13.8 SEC (10.9-12.4)
--- NOTE | 2025-01-09 22:59 | PC.NURSE ---
assumed care of pt at 23:00. report received from Apurva FAY.
[2025-01-09 23:58] LABS: Ammonia 59 umol/L (13-55)
[2025-01-10] VITALS (8 sets, daily range): BP systolic 106–139; BP diastolic 55–85; PULSE 59–93; RESP 16–18; TEMP 36.1–36.8; O2SAT 96–99
[2025-01-10] MEDS: cefTRIAXone sodium 1 GM VIAL IVPUSH (00:12)
[2025-01-10] MEDS: 0.9 % Sodium Chloride Flush 3 ML SYRINGE IVFLUSH ×3 (02:07→23:54)
[2025-01-10] MEDS: traMADoL HCL 50 MG TABLET 25 MG PO (02:51)
[2025-01-10] MEDS: Melatonin 3 MG TABLET 6 MG PO (02:51)
[2025-01-10 06:54] LABS: MANUAL DIFF FLAG NO
[2025-01-10 07:10] LABS: Basophils Percent Auto 0.5 % (0-2); Eosinophils Absolute Auto 0.1 X10*3/uL (0.0-0.4); Eosinophils Percent Auto 2.1 % (0-4); Hematocrit 31.9 % (37.0-47.0); Hemoglobin 10.6 g/dl (12.0-16.0); Imm Gran Abs Auto 0.02 X10*3/uL (0.00-0.03); Imm Gran Pct Auto 0.3 % (0.0-0.4); Lymphocytes Absolute Auto 2.1 X10*3/uL (1.2-4.9); Mean Corpuscular HGB Conc 33.2 g/dl (31.0-35.0); Mean Corpuscular Volume 84.2 fL (80.0-98.0); Mean Platelet Volume 11.9 fL (9.4-12.3); Monocytes Absolute Auto 0.7 X10*3/uL (0.1-1.2); Monocytes Percent Auto 11.1 % (2-11); Neutrophils Absolute Auto 3.4 x10*3/uL (2.0-8.3); Platelet Count 209 X10*3/uL (160-400); Red Blood Count 3.79 X10*6/uL (4.20-5.50); Red Cell Distribution Width 13.3 % (11.0-16.0); White Blood Count 6.3 X10*3/uL (4.8-10.8)
[2025-01-10 07:30] LABS: Albumin Level 3.5 g/dL (3.5-5.0); Alkaline Phosphatase 132 U/L (39-117); Anion Gap 14 (12-20); Aspartate Amino Transferase 888 U/L (5-31); Bilirubin Total 3.6 mg/dL (0.0-1.0); Blood Urea Nitrogen 6 mg/dL (9-16); Calcium 8.7 mg/dL (8.4-10.2); Carbon Dioxide 24 mmol/L (22-29); Chloride 109 mmol/L (96-108); Creatinine Clr Calc Pharmacy 162.3; Estimated Glomerular Filt Rate > 60; Glucose Random 79 mg/dL (60-115); Potassium 4.3 mmol/L (3.3-5.1); Sodium 143 mmol/L (135-145); Total Protein 6.3 g/dL (6.5-8.0)
[2025-01-10 07:35] LABS: Alanine Aminotransferase 1703 U/L (0-31)
--- NOTE | 2025-01-10 08:02 | HO.PM.IMPN ---
Subjective Subjective Date of Service: 01/10/25 Interval History: f/u on abdominal pain, acute hepatitis, n/v, uti reporting feeling better, 03/21, LFTs are trending down Physical Exam Vital Signs: Vital Signs: Last Vital Signs Temp 97.1 F 01/10/25 07:50 Pulse 69 01/10/25 07:50 Resp 16 01/10/25 07:50 BP 113/66 01/10/25 07:50 Pulse Ox 98 01/10/25 07:50 O2 Del Method Room Air 01/10/25 07:50 BMI result Body Mass Index 31.2 Const: Other: General: AO X 3, no acute distress Resp: CTA bilateral CVS: S1,S2,RRR GI: +BS, mild non-specifc tenderness Skin: No rash Neuro: motor grossly intact Psych: appropriate affect Objective Data Active Medications Acetaminophen (Acetaminophen 325 Mg Tablet) 650 mg PO Q6H PRN PRN Reason: Pain, Mild 1-3,fever,headache Calcium Carbonate (Calcium Carbonate 750 Mg Tab.Chew) 750 mg PO Q4H PRN PRN Reason: Heartburn Ceftriaxone Sodium (Ceftriaxone Sodium 1 Gm Vial) 1 gm IVPUSH Q24H [facility] Last Admin: 01/10/25 00:12 Dose: 1 gm Documented By: ULYSSES Magnesium Hydroxide (Milk Of Magnesia 30 Ml Oral.Susp) 30 ml PO DAILY PRN PRN Reason: Constipation Melatonin (Melatonin 3 Mg Tablet) 6 mg PO BEDTIME PRN PRN Reason: Insomnia Last Admin: 01/10/25 02:51 Dose: 6 mg Documented By: RIKKI Ondansetron HCl (Ondansetron Hcl 4 Mg/2 Ml Vial) 4 mg IVPUSH Q8H PRN PRN Reason: Nausea and Vomiting Sodium Chloride (0.9 % Sodium Chloride Flush 3 Ml Syringe) 3 ml IVFLUSH QSHIFT [facility] Last Admin: 01/10/25 02:07 Dose: 3 ml Documented By: RIKKI Labs 01/10/25 05:53 01/10/25 05:53 Labs: Laboratory Results - last 24 hr 01/09/25 01/09/25 01/09/25 13:16 14:26 15:18 MCV 83.9 MCH 27.4 MCHC 32.7 RDW 13.2 Plt Count 234 MPV 10.9 Immature Gran % (Auto) 0.3 Neut % (Auto) 70.0 Lymph % (Auto) 19.1 L [place] % (Auto) 9.0 Eos % (Auto) 1.2 Baso % (Auto) 0.4 Lymph # (Auto) 1.4 [place] # (Auto) 0.7 Eos # (Auto) 0.1 Baso # (Auto) 0.0 Abs Immat Gran (auto) 0.02 Absolute Neuts (auto) 5.3 Absolute Nucleated RBC 0.000 Nucleated RBC % (auto) 0.0 PT INR Anion Gap 11 L Estim Creat Clear Calc 146.0 Estimated GFR > 60 Random Glucose 91 Calcium 8.7 D Total Bilirubin 4.3 H Direct Bilirubin 3.1 H AST 1229 H ALT 2133 H Alkaline Phosphatase 141 H Ammonia Total Protein 6.8 Albumin 3.8 Beta HCG, Quant < 2 Urine Color Dark Yellow Urine Appearance Hazy Urine pH 7.5 Ur Specific [place] <= 1.005 Urine Protein 100 (2+) H Urine Glucose (UA) Negative Urine Ketones 15 Urine Blood Large (3+) H Urine Nitrite Negative Ur Leukocyte Esterase Small (1+) H Urine RBC >20 H Urine WBC 11-20 H Ur Squamous Epith Cells 0-2 Urine Bacteria 1+ Hyaline Casts 0-2 Urine Opiates Screen Not Detected Ur Buprenorphine Scrn Not Detected Ur Oxycodone Screen Not Detected Urine Methadone Screen Not Detected Urine Fentanyl Screen Not Detected Acetaminophen < 3 Ur Barbiturates Screen Not Detected Ur Phencyclidine Scrn Not Detected Ur Amphetamines Screen Not Detected U Benzodiazepines Scrn Not Detected Urine Cocaine Screen Not Detected U Marijuana (THC) Screen Not Detected Ethyl Alcohol < 10 Monoscreen Negative Influenza Type A (PCR) NEGATIVE Influenza Type B (PCR) NEGATIVE RSV RNA Qual (PCR) NEGATIVE SARS-CoV-2 RNA (RT-PCR) NEGATIVE 01/09/25 01/09/25 01/10/25 22:46 23:40 05:53 MCV 84.2 MCH 28.0 MCHC 33.2 RDW 13.3 Plt Count 209 MPV 11.9 Immature Gran % (Auto) 0.3 Neut % (Auto) 53.0 Lymph % (Auto) 33.0 [place] % (Auto) 11.1 H Eos % (Auto) 2.1 Baso % (Auto) 0.5 Lymph # (Auto) 2.1 [place] # (Auto) 0.7 Eos # (Auto) 0.1 Baso # (Auto) 0.0 Abs Immat Gran (auto) 0.02 Absolute Neuts (auto) 3.4 Absolute Nucleated RBC 0.000 Nucleated RBC % (auto) 0.0 PT 13.8 H INR 1.2 H Anion Gap 14 Estim Creat Clear Calc 162.3 Estimated GFR > 60 Random Glucose 79 Calcium 8.7 Total Bilirubin 3.6 H Direct Bilirubin AST 888 H ALT 1703 H Alkaline Phosphatase 132 H Ammonia 59 H Total Protein 6.3 L Albumin 3.5 Beta HCG, Quant Urine Color Urine Appearance Urine pH Ur Specific [place] Urine Protein Urine Glucose (UA) Urine Ketones Urine Blood Urine Nitrite Ur Leukocyte Esterase Urine RBC Urine WBC Ur Squamous Epith Cells Urine Bacteria Hyaline Casts Urine Opiates Screen Ur Buprenorphine Scrn Ur Oxycodone Screen Urine Methadone Screen Urine Fentanyl Screen Acetaminophen Ur Barbiturates Screen Ur Phencyclidine Scrn Ur Amphetamines Screen U Benzodiazepines Scrn Urine Cocaine Screen U Marijuana (THC) Screen Ethyl Alcohol Monoscreen Influenza Type A (PCR) Influenza Type B (PCR) RSV RNA Qual (PCR) SARS-CoV-2 RNA (RT-PCR) Assessment and Plan (1) Vomiting: Status: Acute (2) Transaminitis: Status: Acute (3) Acute hepatitis: Status: Acute Plan This is a 24-year-old female with pertinent history of PCOS, ulcerative colitis not on medications, mood disorder who presents to the emergency department for evaluation of abdominal pain, nausea and vomiting and found to have acute hepatitis Acute hepatitis with conjugated hyperbilirubinemia, DDx viral, toxin LFTs are already treanding down as follow Supportive care with IV hydration, monitor coags follow up viral hepatitis serology pending Avoid Tyleneol for now GI consult Intractable nausea and vomiting in the setting of above. supportive care, PRN antiemetics Syncope, likely orthostatic due to volume loss. IVF, orthostatics radha, cardiac monitoring. Acute UTI: IV ceftriaxone while in the hospital. No sepsis Gastroesophageal reflux disease: IV Protonix given in the ER Mood disorder: No longer on fluoxetine Med rec pending DVT prophylaxis: None. Low risk. Patient is ambulatory Full code Quality Stroke Does the patient have a stroke diagnosis?: No VTE Prior VTE?: No VTE Risk Level:: Medical - moderate - high VTE Device Contraindication: Treatment Not Indicated VTE Drug Contraindication: Treatment Not Indicated
--- NOTE | 2025-01-10 09:54 | PHA.MEDREC ---
Addendum entered by Tonya Arnold liz 01/10/25 10:09: Reviewed by Pharmacist Original Note: Pharmacy Consult ? Medication Reconciliation Pharmacy has completed the medication. reconciliation Spoke with patient to confirm. She takes no prescription medications. She takes Gold-D (pantoprazole 40 mg + Domperidone 30 mg) as needed for acid reflux along with a probiotic taken the same way. She has been using these for the past 4 days post admission. Last had on .
--- NOTE | 2025-01-10 10:18 | PM.GICN ---
History of Present Illness Data of Consult Service Date: 01/10/25 Requesting physician: John Callahan Primary Care Provider: Cristela Barnard MD HPI Reason for consult: jaundice 24-year-old female with history of PCOS, ulcerative colitis not on medications, mood disorder who I am seeing for assessment for jaundice She presented with 5 d of epigastric pain which is constant, coming in waves, nonradiating and without any relieving factors associated with malaise, nausea and non bloody emesis. No fever, chills, shortness of breath, changes in bowel habits. She also lost consciousness and was feeling drowsy with her illness. She was told she had UC dx in [place] at age 14 or so, and has not been on treatment, she was also told it might be crohns. not on OCP, no new meds, no herbal meds and no alcohol or drug use. Returned from [facility] trip about 4 weeks ago. No sick contacts or eating suspicious foods. Review of Systems Review of Systems: Constitutional : No Weight loss, No Fever, No Chills ENT/Mouth : No sore throat, No Rhinorrhea Eyes: No Swelling, No Redness Cardiovascular : No Chest Pain, No SOB, No Edema Respiratory : No Cough, No Sputum, No Wheezing Gastrointestinal : see HPI Genitourinary : NO Dysuria, No Urinary Frequency, No Hematuria, No Urgency Musculoskeletal : no joint pain, No Myalgias, No Joint Swelling Skin : No Skin Lesions, No rash Neuro : No Weakness, No Numbness, No Dizziness, No Headache Psych : No Anxiety/Panic, No Depression Heme/Lymph: No Bruising, No Lymphadenopathy Endocrine : No Polyuria, No Polydipsia All other systems reviewed and are negative. [facility] Past Medical History Medical History Mood disorder Ulcerative colitis PCOS (polycystic ovarian syndrome) Family History Pertinent family history: no fh of liver diease Social History Social History Household Members: None Housing: Other Do you presently have visiting nurse or other home services: No Patient Tobacco Use Status: Current everyday Tobacco user Tobacco use type: Cigarette Meds Allergies Allergy/AdvReac Type Severity Reaction Status Date / Time amoxicillin Allergy Abdominal Verified 01/09/25 12:58 Pain Active Medications: Current Medications Acetaminophen (Acetaminophen 325 Mg Tablet) 650 mg PO Q6H PRN PRN Reason: Pain, Mild 1-3,fever,headache Calcium Carbonate (Calcium Carbonate 750 Mg Tab.Chew) 750 mg PO Q4H PRN PRN Reason: Heartburn Ceftriaxone Sodium (Ceftriaxone Sodium 1 Gm Vial) 1 gm IVPUSH Q24H [facility] Last Admin: 01/10/25 00:12 Dose: 1 gm Magnesium Hydroxide (Milk Of Magnesia 30 Ml Oral.Susp) 30 ml PO DAILY PRN PRN Reason: Constipation Melatonin (Melatonin 3 Mg Tablet) 6 mg PO BEDTIME PRN PRN Reason: Insomnia Last Admin: 01/10/25 02:51 Dose: 6 mg Ondansetron HCl (Ondansetron Hcl 4 Mg/2 Ml Vial) 4 mg IVPUSH Q8H PRN PRN Reason: Nausea and Vomiting Sodium Chloride (0.9 % Sodium Chloride Flush 3 Ml Syringe) 3 ml IVFLUSH QSHIFT [facility] Last Admin: 01/10/25 10:14 Dose: 3 ml Home Medications ?Medication ?Instructions ?Recorded ?Confirmed ?Last Taken ?Type No Known Home Meds 01/10/25 01/10/25 Unknown History Physical Exam Vital Signs: Vital Signs: Last Vital Signs Temp 97.1 F 01/10/25 07:50 Pulse 69 01/10/25 08:33 Resp 16 01/10/25 07:50 BP 113/66 01/10/25 08:33 Pulse Ox 98 01/10/25 07:50 O2 Del Method Room Air 01/10/25 07:50 BMI result Body Mass Index 31.2 EXAM: GENERAL: The patient is well developed and nontoxic. VITAL SIGNS:see workflow HEENT: mildly icteric sclerae, PERRLA, EOMI. Oropharynx clear. Moist mucous membranes. Conjunctivae appear well perfused. No thyroid mass. CHEST: Chest wall is nontender. HEART: Regular rate and rhythm without murmurs. LUNGS: Clear to auscultation bilaterally. ABDOMEN: Soft, positive bowel sounds, nontender, no organomegaly.no flank tenderness SKIN: No rash, no excessive bruising, petechiae, or purpura. NEUROLOGIC: Cranial nerves II-XII intact without motor/sensory deficit. Psych: normal affect Results Labs 01/10/25 05:53 01/10/25 05:53 Labs: Short CBC 01/09/25 01/10/25 Range/Units 13:16 05:53 WBC 7.5 6.3 (4.8-10.8) X10*3/uL Hgb 11.9 L 10.6 L (12.0-16.0) g/dl Hct 36.4 L 31.9 L (37.0-47.0) % Plt Count 234 209 (160-400) X10*3/uL BMP 01/09/25 01/10/25 13:16 05:53 Sodium 143 143 Potassium 4.1 4.3 Chloride 111 H 109 H Carbon Dioxide 25 24 BUN 8 L 6 L Creatinine 0.60 0.54 Calcium 8.7 D 8.7 Liver Function 01/09/25 01/10/25 Range/Units 13:16 05:53 Total Bilirubin 4.3 H 3.6 H (0.0-1.0) mg/dL Direct Bilirubin 3.1 H (0.0-0.5) mg/dL AST 1229 H 888 H (5-31) U/L ALT 2133 H 1703 H (0-31) U/L Alkaline Phosphatase 141 H 132 H (39-117) U/L Albumin 3.8 3.5 (3.5-5.0) g/dL Urine 01/09/25 Range/Units 14:26 Urine Color Dark Yellow Urine Appearance Hazy Urine pH 7.5 (5.0-9.0) Ur Specific [place] <= 1.005 (1.005-1.025) Urine Protein 100 (2+) H (Neg-Trace) mg/dL Urine Glucose (UA) Negative (Negative) mg/dL Assessment and Plan (1) Acute hepatitis: Status: Acute Plan 1/ Acute hepatitis, most likely viral etiology, Hep A strong possibility, other causes EBV. Yellow fever and malaria seem unlikely as it is winter in [place]. Other than infectious etiology, differential would include budd chiaria, Autoimmune, wilsons, toxic liver injury, PSC due to her hx of presumed IBD. Gallstones not seen on initial imaging but her pain appears to be more colicky in nature PLAN: 1/ Await viral serologies and ROLA 2/ Consider MRCP to r/o PSC or other lesions not seen on prior imaging 3/ trend LFT and INR, fluids -avoid hepatotoxins and nsaids Procedures Date of Service Date of Service: 01/10/25
[2025-01-10] MEDS: oxyCODONE HCl Immed Release 5 MG TABLET PO (11:59)
--- NOTE | 2025-01-10 15:12 | MHC.CM.PN ---
PT REPORTS SHE LIVES ALONE AND IS INDEPENDENT WITH CARE SHE HAS NO DME AND NO SERVICES PT DOES NOT HAVE A HCP, SHE DOES NOT WANT TO COMPLETE ONE AT THIS TIME PCP: RAH WILSON DCP: HOME NO SERVICES VIA [facility]RA/GABRIEL
[2025-01-10] MEDS: Morphine Sulfate 2 MG/ML CARTRIDGE IVPUSH (18:14)
[2025-01-10] MEDS: metroNIDAZOLE/NS 500 MG/100 ML PIGGYBACK 100 MG IV (19:36)
[2025-01-10] MEDS: ondansetron HCL 4 MG/2 ML VIAL IVPUSH (22:58)
[2025-01-11] MEDS: cefTRIAXone sodium 1 GM VIAL IVPUSH ×2 (00:04→22:03)
--- NOTE | 2025-01-11 00:47 | PC.NURSE ---
Patient was c/o of nausea and abd pain, friend @ bedside said she was going in & out of consciousness just before my arrival. patient was visibly conscious when I entered the room but also visibly in discomfort. Vitals were checked and WNL. Zofran was administered for 22:58, patient refused pain meds because she said she thinks they make her feel worse. Pt asked to speak with Dr. Callahan, he was notified. upon reassessment for the zofran patient was lying down in the dark with eyes closed then opened them as I got closer. She said the zofran made her feel a little less nauseous but she still had the feeling & still c/o of abd pain but still declining any meds, just wanting to speak to the doctor.
[2025-01-11] MEDS: metroNIDAZOLE/NS 500 MG/100 ML PIGGYBACK 100 MG IV ×3 (03:07→22:04)
[2025-01-11 03:28] VITALS: BP 113/52; PULSE 58; RESP 18; TEMP 36.6; O2SAT 98
[2025-01-11 07:14] LABS: Albumin Level 3.4 g/dL (3.5-5.0); Alkaline Phosphatase 125 U/L (39-117); Anion Gap 17 (12-20); Aspartate Amino Transferase 610 U/L (5-31); Bilirubin Total 3.2 mg/dL (0.0-1.0); Blood Urea Nitrogen 7 mg/dL (9-16); Calcium 8.4 mg/dL (8.4-10.2); Carbon Dioxide 20 mmol/L (22-29); Chloride 108 mmol/L (96-108); Estimated Glomerular Filt Rate > 60; Glucose Random 71 mg/dL (60-115); Potassium 3.6 mmol/L (3.3-5.1); Sodium 141 mmol/L (135-145); Total Protein 6.1 g/dL (6.5-8.0)
--- NOTE | 2025-01-11 07:24 | HO.PM.IMPN ---
Subjective Subjective Date of Service: 01/11/25 Interval History: Seen in follow-up for acute hepatitis with intractable nausea and vomiting as well as syncope Interval history: Reporting epigastric dysfunction with a burning sensation and reflux. She states she has also been experiencing lightheadedness with nausea but no ongoing vomiting. She states that last night she had multiple episodes where she reportedly lost consciousness which was witnessed by her friend. She states that she has been unable to tolerate p.o.. Has only consumed about 250 mL water since yesterday and has not eaten in any food since last Sunday except for a banana on . She states that she has had similar symptoms in the past and reports a remote history of ulcerative colitis vs crohns diagnosed in [place] but is not on any maintenance medications. Denies any bloody diarrhea. She reports she had some shortness of breath last night with his tightness in her chest when she was feeling dizzy. She does endorse some anxiety but does not feel this is the cause of her symptoms. LFTs downtrending Review of Systems Review of Systems: Yes all other systems are reviewed and are negative Physical Exam Vital Signs: Vital Signs: Last Vital Signs Temp 97.9 F 01/11/25 03:28 Pulse 58 01/11/25 03:28 Resp 18 01/11/25 03:28 BP 113/52 L 01/11/25 03:28 Pulse Ox 98 01/11/25 03:28 O2 Del Method Room Air 01/11/25 03:28 BMI result Body Mass Index 31.2 Constitutional - Awake and Alert, No apparent distress Eyes - PERRLA, EOMI Cardiovascular - S1S2, RRR, No edema Respiratory - Normal lung expansion, Normal respiratory effort, No respiratory distress, CTA bilaterally Gastrointestinal - diffuse abd ttp greatest in the epigastrium. ND; +BS; No rebound or guarding Extremities - no calf tenderness bilaterally, no swelling Skin - Warm/Dry Neurological - Alert & oriented x3 Psychological - Appropriate affect Objective Data Active Medications Calcium Carbonate (Calcium Carbonate 750 Mg Tab.Chew) 750 mg PO Q4H PRN PRN Reason: Heartburn Ceftriaxone Sodium (Ceftriaxone Sodium 1 Gm Vial) 1 gm IVPUSH Q24H [facility] Last Admin: 01/11/25 00:04 Dose: 1 gm Documented By: RIKKI Metronidazole (Flagyl) 500 mg in 100 mls @ 100 mls/hr IV Q8H [facility] Last Infusion: 01/11/25 04:15 Dose: Infused Documented By: RIKKI Lactated Ringer's (Lr) 1,000 mls @ 999 mls/hr IV .Q1H1M [facility] Stop: 01/11/25 08:15 Magnesium Hydroxide (Milk Of Magnesia 30 Ml Oral.Susp) 30 ml PO DAILY PRN PRN Reason: Constipation Melatonin (Melatonin 3 Mg Tablet) 6 mg PO BEDTIME PRN PRN Reason: Insomnia Last Admin: 01/10/25 02:51 Dose: 6 mg Documented By: RIKKI Morphine Sulfate (Morphine Sulfate 2 Mg/Ml Cartridge) 2 mg IVPUSH Q6H PRN; Protocol PRN Reason: Pain, Severe (Pain Scale 7-10) Last Admin: 01/10/25 18:14 Dose: 2 mg Documented By: CAITY Ondansetron HCl (Ondansetron Hcl 4 Mg/2 Ml Vial) 4 mg IVPUSH Q8H PRN PRN Reason: Nausea and Vomiting Last Admin: 01/10/25 22:58 Dose: 4 mg Documented By: RIKKI Oxycodone HCl (Oxycodone Hcl Immed Release 5 Mg Tablet) 5 mg PO Q6H PRN PRN Reason: Pain, Moderate(Pain Scale 4-6) Sodium Chloride (0.9 % Sodium Chloride Flush 3 Ml Syringe) [facility] Last Admin: 01/10/25 23:54 Dose: 3 ml Documented By: RIKKI Labs 01/10/25 05:53 01/11/25 05:50 Labs: Laboratory Results - last 24 hr 01/10/25 01/11/25 05:53 05:50 Anion Gap 14 17 Estim Creat Clear Calc 162.3 151.0 Estimated GFR > 60 > 60 Random Glucose 79 71 Calcium 8.7 8.4 Total Bilirubin 3.6 H 3.2 H AST 888 H 610 H ALT 1703 H Alkaline Phosphatase 132 H 125 H Total Creatine Kinase 28 Total Protein 6.3 L 6.1 L Albumin 3.5 3.4 L Microbiology Microbiology Results: Microbiology 01/09/25 Unknown Urine Culture - Final Urine clean catch - Clean Catch Midstream No growth. Assessment and Plan (1) Vomiting: Status: Acute (2) Transaminitis: Status: Acute (3) Acute hepatitis: Status: Acute Plan This is a 24-year-old female with pertinent history of PCOS, ulcerative colitis not on medications, mood disorder who presents to the emergency department for evaluation of abdominal pain, nausea and vomiting and found to have acute hepatitis Acute hepatitis with conjugated hyperbilirubinemia, DDx viral, toxin LFTs are already treanding down as follow Total bili: 4.3 --> 3.6 --> 3.2 AST: 1229 --> 888 --> 610 ALT: 2133 --> 1703 --> 1320 Alk Phos: 141--> 132 --> 125 Suspect etiology is viral. Per GI : Hep A strong possibility, other causes EBV. Yellow fever and malaria less likely as it is winter in [place]. Other than infectious etiology, differential would include budd chiaria, Autoimmune, wilsons, toxic liver injury, PSC due to her hx of presumed IBD MRCP shows some pericholecystic fluid, no choledocholithiasis. Possible acalculous cholecystitis. IV ceftriaxone and Flagyl (initiated 01/10) for empiric coverage General surgery consult. Plan for HIDA scan tomorrow Trend LFTs Supportive care with IV hydration, monitor coags Intractable nausea and vomiting in the setting of above. supportive care, PRN antiemetics Has not eaten in 7 days with the exception of a banana 3 days ago and not tolerating adequate p.o. fluids Resume IVF, PPN ordered Syncope, likely orthostatic due to volume loss. reportedly had several episodes last night (01/10-2) witnessed by her friend Resume cardiac monitoring IVF, PPN as above Check orthostatics a.m. Question component of anxiety resulting in her lightheadedness. Ativan p.r.n. added Asymptomatic bacteriuria Urine culture negative Will continue ceftriaxone due to above. No UTI Gastroesophageal reflux disease Add omeprazole, Tums p.r.n. Mood disorder: No longer on fluoxetine DVT prophylaxis: None. Low risk. Patient is ambulatory Full code Patient requires ongoing inpatient stay due to p.o. intolerance on PPN with recurrent syncope Quality Stroke Does the patient have a stroke diagnosis?: No VTE Prior VTE?: No VTE Risk Level:: Medical - moderate - high VTE Device Contraindication: Treatment Not Indicated VTE Drug Contraindication: Treatment Not Indicated
[2025-01-11 07:31] LABS: Alanine Aminotransferase 1320 U/L (0-31)
[2025-01-11 07:48] VITALS: BP 123/79; PULSE 63; RESP 18; TEMP 36.3; O2SAT 97
[2025-01-11] MEDS: ondansetron HCL 4 MG/2 ML VIAL IVPUSH (08:15)
[2025-01-11] MEDS: Lactated Ringers 1,000 ML 999 ML IV (08:15)
[2025-01-11 08:27] LABS: Iron 100 mcg/dL (30-160); Percent Iron Saturation 43 % (15-50); Total Iron Binding Capacity 234 mcg/dL (228-428); Unsaturated Iron Binding 134 ug/dL
[2025-01-11 08:39] LABS: Ferritin 239 ng/mL (10-122)
--- NOTE | 2025-01-11 09:07 | PM.CNGS ---
History of Present Illness Consult details Consult date: 01/11/25 Requesting physician: Jazmine Torres Narrative: 24-year-old female patient presenting with complaints of right upper quadrant abdominal pain radiating into the right back associated with nausea and vomiting. The symptoms started on Sunday and progress over the last several days. She reports anorexia and has not been able to eat most of the week. She reports a recent travel to [facility] to visit with family although denies any sick contacts and never had any symptoms while on vacation. She does have a past history of PCOS and possibly ulcerative colitis although never underwent endoscopy. She did have a migraine while in [facility] which was treated and subsequently improved. Workup in the emergency department revealed markedly elevated transaminases and bilirubin levels. CT of the abdomen did reveal some mesenteric lymphadenitis but no calcified gallstones. Subsequent MRCP revealed no biliary ductal dilatation or evidence of choledocholithiasis or cholelithiasis. Pericholecystic fluid and edema was identified raising the possibility of acalculous cholecystitis. Review of Systems Review of Systems: Yes all other systems are reviewed and are negative [facility] Past Medical History Medical History Mood disorder Ulcerative colitis PCOS (polycystic ovarian syndrome) Social History Social History Household Members: None Housing: Other Do you presently have visiting nurse or other home services: No Patient Tobacco Use Status: Current everyday Tobacco user Tobacco use type: Cigarette service: No Meds Allergies Allergy/AdvReac Type Severity Reaction Status Date / Time amoxicillin Allergy Abdominal Verified 01/09/25 12:58 Pain Active Medications: Current Medications Calcium Carbonate (Calcium Carbonate 750 Mg Tab.Chew) 750 mg PO Q4H PRN PRN Reason: Heartburn Ceftriaxone Sodium (Ceftriaxone Sodium 1 Gm Vial) 1 gm IVPUSH Q24H [facility] Last Admin: 01/11/25 00:04 Dose: 1 gm Metronidazole (Flagyl) 500 mg in 100 mls @ 100 mls/hr IV Q8H [facility] Last Infusion: 01/11/25 04:15 Dose: Infused Magnesium Hydroxide (Milk Of Magnesia 30 Ml Oral.Susp) 30 ml PO DAILY PRN PRN Reason: Constipation Melatonin (Melatonin 3 Mg Tablet) 6 mg PO BEDTIME PRN PRN Reason: Insomnia Last Admin: 01/10/25 02:51 Dose: 6 mg Morphine Sulfate (Morphine Sulfate 2 Mg/Ml Cartridge) 2 mg IVPUSH Q6H PRN; Protocol PRN Reason: Pain, Severe (Pain Scale 7-10) Last Admin: 01/10/25 18:14 Dose: 2 mg Ondansetron HCl (Ondansetron Hcl 4 Mg/2 Ml Vial) 4 mg IVPUSH Q8H PRN PRN Reason: Nausea and Vomiting Last Admin: 01/10/25 22:58 Dose: 4 mg Oxycodone HCl (Oxycodone Hcl Immed Release 5 Mg Tablet) 5 mg PO Q6H PRN PRN Reason: Pain, Moderate(Pain Scale 4-6) Sodium Chloride (0.9 % Sodium Chloride Flush 3 Ml Syringe) [facility] Last Admin: 01/11/25 08:15 Dose: Not Given Home Medications ?Medication ?Instructions ?Recorded ?Confirmed ?Last Taken ?Type No Known Home Meds 01/10/25 01/10/25 Unknown History Physical Exam Vital Signs: Vital Signs: Last Vital Signs Temp 97.3 F 01/11/25 07:48 Pulse 63 01/11/25 07:48 Resp 18 01/11/25 07:48 BP 123/79 01/11/25 07:48 Pulse Ox 97 01/11/25 07:48 O2 Del Method Room Air 01/11/25 07:48 BMI result Body Mass Index 31.2 Const: General: cooperative and no acute distress Nutritional Appearance: well nourished Orientation/consciousness: patient oriented x3 Limitations: no limitations HEENT: Head: Yes normocephalic and Yes atraumatic Ears: hearing grossly normal bilaterally Resp: Effort & Inspection: normal respiratory effort, no audible wheezes, no cough and no respiratory distress Cardio: Jugular venous distension: no JVD GI: Inspection: Yes normal to inspection Palpation (GI): Soft to palpation, Tenderness to palpation present (GI) in the RUQ; Stark's sign negative, no guarding, not rigid and No hepatosplenomegaly present Skin: Other: Warm, dry, no rash Neuro: General: patient oriented x3 Extrem: General: Yes no clubbing, cyanosis or edema Results Labs 01/10/25 05:53 01/11/25 05:50 Labs: Abnormal lab results 01/11/25 Range/Units 05:50 Carbon Dioxide 20 L (22-29) mmol/L BUN 7 L (9-16) mg/dL Ferritin 239 H (10-122) ng/mL Total Bilirubin 3.2 H (0.0-1.0) mg/dL AST 610 H (5-31) U/L ALT 1320 H (0-31) U/L Alkaline Phosphatase 125 H (39-117) U/L Total Protein 6.1 L (6.5-8.0) g/dL Albumin 3.4 L (3.5-5.0) g/dL BMP 01/11/25 05:50 Sodium 141 Potassium 3.6 Chloride 108 Carbon Dioxide 20 L BUN 7 L Creatinine 0.58 Calcium 8.4 Cardiac Enzymes 01/10/25 Range/Units 05:53 Total Creatine Kinase 28 (26-140) U/L Liver Function 01/11/25 Range/Units 05:50 Total Bilirubin 3.2 H (0.0-1.0) mg/dL AST 610 H (5-31) U/L ALT 1320 H (0-31) U/L Alkaline Phosphatase 125 H (39-117) U/L Albumin 3.4 L (3.5-5.0) g/dL Urine 01/09/25 Range/Units 14:26 Urine Color Dark Yellow Urine Appearance Hazy Urine pH 7.5 (5.0-9.0) Ur Specific [place] <= 1.005 (1.005-1.025) Urine Protein 100 (2+) H (Neg-Trace) mg/dL Urine Glucose (UA) Negative (Negative) mg/dL All other labs normal. Assessment and Plan (1) Transaminitis: Status: Acute (2) Acute acalculous cholecystitis: Status: Acute Plan 24-year-old female patient with recent onset of right upper quadrant abdominal pain progressing in nature associated with anorexia, nausea and vomiting. Patient was found to be tender in the right upper quadrant. Laboratories revealed elevated liver transaminases and bili. Workup with CT was negative for radiopaque gallstones or ductal dilatation. MRCP revealed no evidence of choledocholithiasis however there was pericholecystic fluid raising the suspicion of acalculous cholecystitis. I recommended further evaluation with a HIDA scan to assess biliary function. I reviewed the procedure with the patient and she expressed understanding and agrees with the plan. Procedures Date of Service Date of Service: 01/11/25
[2025-01-11 09:24] LABS: INTERNATIONAL NORM RATIO 1.1 (0.9-1.1); Prothrombin Time 12.6 SEC (10.9-12.4)
[2025-01-11] MEDS: Lactated Ringers 1,000 ML 100 ML IVCONT ×2 (11:24→22:03)
--- NOTE | 2025-01-11 11:31 | MHC.CLN ---
RE: CONSULT FOR PPN HT 5'3 WT 80KG BMI 31.2 PT WITH POOR PO, N/V AND ABDOMINAL PAIN R/T ACUTE HEPATITIS ENN: BASED ON IBW 1463KCALS, 52G PROTEIN, 1560ML FLUID REVIEWED LABS NOTED NH3 59, BUN [address]-NO PO INTAKE RECORDED DISCUSSED WITH PHARMACY RECOMMEND PPN AT 50ML/HR TO PROVIDE 612KCALS, 120G DEXTROSE, 51G PROTEIN CHECK TRIGS FOR LIPIDS TOMORROW REPLETE LYTES NEEDED FULL CLINICAL NUTRITION ASSESSMENT TO FOLLOW
[2025-01-11] MEDS: Omeprazole 40 MG CAPSULE.DR PO (12:12)
[2025-01-11 13:13] LABS: C Reactive Protein 0.32 mg/dL (< or = 0.50); Magnesium 1.8 mg/dL (1.6-2.6); Phosphorus 3.5 mg/dL (2.7-4.5)
[2025-01-11 15:19] VITALS: BP 119/64; PULSE 61; RESP 18; TEMP 36.4; O2SAT 99
[2025-01-11] MEDS: Calcium Carbonate 750 MG TAB.CHEW PO (16:46)
[2025-01-11] MEDS: Omeprazole 20 MG CAPSULE.DR PO (19:11)
[2025-01-11] MEDS: Sucralfate 1 GM TABLET PO ×2 (19:11→22:14)
[2025-01-11 20:00] VITALS: BP 126/61; PULSE 64; RESP 18; TEMP 36.7; O2SAT 95
[2025-01-11] MEDS: Melatonin 3 MG TABLET 6 MG PO (22:14)
[2025-01-11] MEDS: 0.9 % Sodium Chloride Flush 3 ML SYRINGE IVFLUSH (22:16)
[2025-01-11] MEDS: Parenteral Nutrition 1,200 ML 50 ML IV (23:13)
--- NOTE | 2025-01-12 02:35 | MHC.PIE ---
p; pt refusing new iv site - pt already has a working site, new site needed for PPN. LR placed on hold, PPN stared with pt c/o burning pain from PPN. PPN placed on hold and LR at 100 restarted. i; dr sandy notified. e; will cont to monitor
[2025-01-12] MEDS: LORazepam 0.5 MG TABLET PO ×2 (02:53→21:27)
[2025-01-12 02:59] VITALS: BP 109/63; PULSE 56; RESP 18; TEMP 36.7; O2SAT 99
[2025-01-12] MEDS: metroNIDAZOLE/NS 500 MG/100 ML PIGGYBACK 100 MG IV ×3 (04:42→19:51)
[2025-01-12] MEDS: Omeprazole 20 MG CAPSULE.DR PO ×2 (05:20→18:13)
[2025-01-12 06:30] LABS: Albumin Level 3.5 g/dL (3.5-5.0); Anion Gap 12 (12-20); Blood Urea Nitrogen 5 mg/dL (9-16); Carbon Dioxide 25 mmol/L (22-29); Chloride 108 mmol/L (96-108); Creatinine Clr Calc Pharmacy 156.4; Estimated Glomerular Filt Rate > 60; Glucose Random 80 mg/dL (60-115); Magnesium 1.8 mg/dL (1.6-2.6); Phosphorus 3.7 mg/dL (2.7-4.5); Potassium 3.8 mmol/L (3.3-5.1); Sodium 141 mmol/L (135-145); Triglycerides 83 mg/dL (<150)
[2025-01-12 07:15] LABS: Alanine Aminotransferase 1014 U/L (0-31); Alkaline Phosphatase 126 U/L (39-117); Aspartate Amino Transferase 342 U/L (5-31); Bilirubin Direct 1.8 mg/dL (0.0-0.5); Bilirubin Total 2.6 mg/dL (0.0-1.0); Total Protein 6.2 g/dL (6.5-8.0)
[2025-01-12 07:44] VITALS: BP 110/70; PULSE 54; RESP 20; TEMP 36.2; O2SAT 97
--- NOTE | 2025-01-12 08:17 | P.PNGS_ITS ---
Subjective Subjective Date of Service: 01/12/25 Interval history: Patient reports continued abdominal pain in the right upper quadrant, denies vomiting. She was awaiting HIDA scan this morning. Physical Exam 2 Vital Signs: Vital Signs: Last Vital Signs Temp 97.2 F 01/12/25 07:44 Pulse 54 01/12/25 07:44 Resp 20 01/12/25 07:44 BP 110/70 01/12/25 07:44 Pulse Ox 97 01/12/25 07:44 O2 Del Method Room Air 01/12/25 07:44 BMI result Body Mass Index 31.2 Const: General: tired appearing Nutritional Appearance: well nourished O rientation/consciousness: patient oriented x3 Resp: Effort & Inspection: normal respiratory effort GI: Palpation (GI): Soft to palpation, Tenderness to palpation present (GI) in the RUQ, no guarding, not rigid and No hepatosplenomegaly present Neuro: General: patient oriented x3 Extrem: General: Yes no clubbing, cyanosis or edema Objective Data Active Medications Calcium Carbonate (Calcium Carbonate 750 Mg Tab.Chew) 750 mg PO Q4H PRN PRN Reason: Heartburn Last Admin: 01/11/25 16:46 Dose: 750 mg Documented By: CAITY Ceftriaxone Sodium (Ceftriaxone Sodium 1 Gm Vial) 1 gm IVPUSH Q24H [facility] [place] Last Admin: 01/11/25 22:03 Dose: 1 gm Documented By: TOSHIA Metronidazole (Flagyl) 500 mg in 100 mls @ 100 mls/hr IV Q8H [facility] [place] Last Infusion: 01/12/25 05:42 Dose: Infused Documented By: TOSHIA Lactated Ringer's (Lr) 1,000 mls @ 100 mls/hr IVCONT .Q10H [facility] [place] Last Admin: 01/12/25 05:24 Dose: Not Given Documented By: TOSHIA Non-Admin Reason: IV Running Nutrition (Parenteral) (Parenteral Nutrition) 1,200 mls @ 50 mls/hr IV .Q24H [facility] [place]; Protocol Stop: 01/12/25 20:59 Last Infusion: 01/11/25 23:26 Dose: 0 mls/hr Documented By: TOSHIA Lorazepam (Lorazepam 0.5 Mg Tablet) 0.5 mg PO Q8H PRN PRN Reason: anxiety/restlessness Last Admin: 01/12/25 02:53 Dose: 0.5 mg Documented By: TOSHIA Magnesium Hydroxide (Milk Of Magnesia 30 Ml Oral.Susp) 30 ml PO DAILY PRN PRN Reason: Constipation Melatonin (Melatonin 3 Mg Tablet) 6 mg PO BEDTIME PRN PRN Reason: Insomnia Last Admin: 01/11/25 22:14 Dose: 6 mg Documented By: TOSHIA Morphine Sulfate (Morphine Sulfate 2 Mg/Ml Cartridge) 2 mg IVPUSH Q6H PRN; Protocol PRN Reason: Pain, Severe (Pain Scale 7-10) Last Admin: 01/10/25 18:14 Dose: 2 mg Documented By: CAITY Omeprazole (Omeprazole 20 Mg Capsule.Dr) 20 mg PO BID@0630,1630 [facility] [place] Last Admin: 01/12/25 05:20 Dose: 20 mg Documented By: TOSHIA Ondansetron HCl (Ondansetron Hcl 4 Mg/2 Ml Vial) 4 mg IVPUSH Q8H PRN PRN Reason: Nausea and Vomiting Last Admin: 01/10/25 22:58 Dose: 4 mg Documented By: RIKKI Oxycodone HCl (Oxycodone Hcl Immed Release 5 Mg Tablet) 5 mg PO Q6H PRN PRN Reason: Pain, Moderate(Pain Scale 4-6) Pharmacy Consult (Consult Rx Parenteral Nutrition Ordering) 1 each MISCELLANE DAILY PRN PRN Reason: Consult order Simethicone (Simethicone 80 Mg Tab.Chew) 80 mg PO QIDWMHS PRN PRN Reason: Gas Sodium Chloride (0.9 % Sodium Chloride Flush 3 Ml Syringe) 3 ml IVFLUSH QSHIFT [facility] [place] Last Admin: 01/11/25 22:16 Dose: 3 ml Documented By: TOSHIA Sucralfate (Sucralfate 1 Gm Tablet) 1 gm PO QIDACHS [facility] [place] Last Admin: 01/11/25 22:14 Dose: 1 gm Documented By: TOSHIA Labs 01/10/25 05:53 01/12/25 05:15 Labs: Laboratory Results - last 24 hr 01/11/25 01/11/25 01/12/25 05:50 08:42 05:15 PT 12.6 H INR 1.1 Anion Gap 12 Estim Creat Clear Calc 156.4 Estimated GFR > 60 Random Glucose 80 Calcium 9.0 D Phosphorus 3.5 3.7 Magnesium 1.8 1.8 Iron 100 TIBC 234 % Saturation 43 Unsat Iron Binding 134 Ferritin 239 H Total Bilirubin 2.6 H Direct Bilirubin 1.8 H AST 342 H ALT 1014 H Alkaline Phosphatase 126 H C-Reactive Protein 0.32 Total Protein 6.2 L Albumin 3.5 Triglycerides 83 Procedures Date of Service Date of Service: 01/12/25 Progress Note: A&P Assessment and plan (1) Transaminitis: Status: Acute (2) Acute acalculous cholecystitis: Status: Acute Plan 24-year-old female presenting with complaints of abdominal pain mainly in the right upper quadrant with elevated transaminase levels possibly due to hepatitis A versus acalculous cholecystitis. We will await HIDA scan findings later today. Patient expressed understanding and agrees with the plan. Time Spent With Patient Time: Total time managing care of this patient today ____ minutes. Quality Stroke Does the patient have a stroke diagnosis?: No VTE Prior VTE?: No VTE Risk Level:: Medical - moderate - high VTE Device Contraindication: Treatment Not Indicated VTE Drug Contraindication: Treatment Not Indicated
--- NOTE | 2025-01-12 08:20 | P.PNIM_ITS ---
Subjective Subjective Date of Service: 01/12/25 Interval History: Seen in follow-up for acute hepatitis with intractable nausea and vomiting as well as syncope Interval history: No further syncopal episodes. Only tolerating small amounts of clear liquids. Still reports epigastric pain and belching. Feels carafate was helpful. Reports burning with ppn in LUE proximal to IV site. Subsequently stopped. Asking how long she needs to be in the hospital. Discussed that she needs to be able to tolerate food after which she requested crackers to try Review of Systems Review of Systems: Yes all other systems are reviewed and are negative Physical Exam 2 Vital Signs: Vital Signs: Last Vital Signs Temp 97.2 F 01/12/25 07:44 Pulse 54 01/12/25 07:44 Resp 20 01/12/25 07:44 BP 110/70 01/12/25 07:44 Pulse Ox 97 01/12/25 07:44 O2 Del Method Room Air 01/12/25 07:44 BMI result Body Mass Index 31.2 Objective Data Active Medications Calcium Carbonate (Calcium Carbonate 750 Mg Tab.Chew) 750 mg PO Q4H PRN PRN Reason: Heartburn Last Admin: 01/11/25 16:46 Dose: 750 mg Documented By: CAITY Ceftriaxone Sodium (Ceftriaxone Sodium 1 Gm Vial) 1 gm IVPUSH Q24H [facility] Last Admin: 01/11/25 22:03 Dose: 1 gm Documented By: TOSHIA Metronidazole (Flagyl) 500 mg in 100 mls @ 100 mls/hr IV Q8H [facility] Last Infusion: 01/12/25 05:42 Dose: Infused Documented By: TOSHIA Lactated Ringer's (Lr) 1,000 mls @ 100 mls/hr IVCONT .Q10H [facility] Last Admin: 01/12/25 05:24 Dose: Not Given Documented By: TOSHIA Non-Admin Reason: IV Running Nutrition (Parenteral) (Parenteral Nutrition) 1,200 mls @ 50 mls/hr IV .Q24H [facility]; Protocol Stop: 01/12/25 20:59 Last Infusion: 01/11/25 23:26 Dose: 0 mls/hr Documented By: TOSHIA Lorazepam (Lorazepam 0.5 Mg Tablet) 0.5 mg PO Q8H PRN PRN Reason: anxiety/restlessness Last Admin: 01/12/25 02:53 Dose: 0.5 mg Documented By: TOSHIA Magnesium Hydroxide (Milk Of Magnesia 30 Ml Oral.Susp) 30 ml PO DAILY PRN PRN Reason: Constipation Melatonin (Melatonin 3 Mg Tablet) 6 mg PO BEDTIME PRN PRN Reason: Insomnia Last Admin: 01/11/25 22:14 Dose: 6 mg Documented By: TOSHIA Morphine Sulfate (Morphine Sulfate 2 Mg/Ml Cartridge) 2 mg IVPUSH Q6H PRN; Protocol PRN Reason: Pain, Severe (Pain Scale 7-10) Last Admin: 01/10/25 18:14 Dose: 2 mg Documented By: CAITY Omeprazole (Omeprazole 20 Mg Capsule.Dr) 20 mg PO BID@0630,1630 [facility] Last Admin: 01/12/25 05:20 Dose: 20 mg Documented By: TOSHIA Ondansetron HCl (Ondansetron Hcl 4 Mg/2 Ml Vial) 4 mg IVPUSH Q8H PRN PRN Reason: Nausea and Vomiting Last Admin: 01/10/25 22:58 Dose: 4 mg Documented By: RIKKI Oxycodone HCl (Oxycodone Hcl Immed Release 5 Mg Tablet) 5 mg PO Q6H PRN PRN Reason: Pain, Moderate(Pain Scale 4-6) Pharmacy Consult (Consult Rx Parenteral Nutrition Ordering) 1 each MISCELLANE DAILY PRN PRN Reason: Consult order Simethicone (Simethicone 80 Mg Tab.Chew) 80 mg PO QIDWMHS PRN PRN Reason: Gas Sodium Chloride (0.9 % Sodium Chloride Flush 3 Ml Syringe) 3 ml IVFLUSH QSHIFT [facility] Last Admin: 01/11/25 22:16 Dose: 3 ml Documented By: OTSHIA Sucralfate (Sucralfate 1 Gm Tablet) 1 gm PO QIDACHS [facility] Last Admin: 01/11/25 22:14 Dose: 1 gm Documented By: TOSHIA Labs 01/10/25 05:53 01/12/25 05:15 Labs: Laboratory Results - last 24 hr 01/11/25 01/11/25 01/12/25 05:50 08:42 05:15 PT 12.6 H INR 1.1 Anion Gap 12 Estim Creat Clear Calc 156.4 Estimated GFR > 60 Random Glucose 80 Calcium 9.0 D Phosphorus 3.5 3.7 Magnesium 1.8 1.8 Iron 100 TIBC 234 % Saturation 43 Unsat Iron Binding 134 Ferritin 239 H Total Bilirubin 2.6 H Direct Bilirubin 1.8 H AST 342 H ALT 1014 H Alkaline Phosphatase 126 H C-Reactive Protein 0.32 Total Protein 6.2 L Albumin 3.5 Triglycerides 83 Assessment and Plan (1) Vomiting: Status: Acute (2) Transaminitis: Status: Acute (3) Acute hepatitis: Status: Acute Plan This is a 24-year-old female with pertinent history of PCOS, ulcerative colitis not on medications, mood disorder who presents to the emergency department for evaluation of abdominal pain, nausea and vomiting and found to have acute hepatitis Acute hepatitis with conjugated hyperbilirubinemia, DDx viral, toxin LFTs are already treanding down as follow Total bili: 4.3 --> 3.6 --> 3.2--> 2.6 AST: 1229 --> 888 --> 610--> 342 ALT: 2133 --> 1703 --> 1320--> 1014 Alk Phos: 141--> 132 --> 125--> 126 Suspect etiology is viral. Per GI : Hep A strong possibility, other causes EBV. Yellow fever and malaria less likely as it is winter in [place]. Other than infectious etiology, differential would include budd chiaria, Autoimmune, wilsons, toxic liver injury, PSC due to her hx of presumed IBD MRCP shows some pericholecystic fluid, no choledocholithiasis. Possible acalculous cholecystitis. IV ceftriaxone and Flagyl (initiated 01/10) for empiric coverage General surgery following. HIDA results pending. Trend LFTs Supportive care with IV hydration, monitor coags Intractable nausea and vomiting in setting of above with epigastric pain supportive care, PRN antiemetics Has not eaten in 7 days with the exception of a banana 3 days ago and not tolerating adequate p.o. fluids Resume IVF, PPN burning. Discussed with motor adjuster and pharmacy who will readjust components omeprazole 20mg BID, carafate chetna, simethicone prn Syncope, likely orthostatic due to volume loss. reportedly had several episodes last night (01/10-2) witnessed by her friend. No recurrence overnight Continue cardiac monitoring IVF, PPN as above Question component of anxiety resulting in her lightheadedness. Ativan p.r.n. added Asymptomatic bacteriuria Urine culture negative Will continue ceftriaxone due to above. No UTI Gastroesophageal reflux disease Add omeprazole, Tums p.r.n. Mood disorder: No longer on fluoxetine DVT prophylaxis: None. Low risk. Patient is ambulatory. add scps Full code Patient requires ongoing inpatient stay due to p.o. intolerance on PPN with recurrent syncope Quality Stroke Does the patient have a stroke diagnosis?: No VTE Prior VTE?: No VTE Risk Level:: Medical - moderate - high VTE Device Contraindication: Treatment Not Indicated VTE Drug Contraindication: Treatment Not Indicated
[2025-01-12 09:11] VITALS: BMI 31.2
--- NOTE | 2025-01-12 09:30 | MHC.CLN ---
NUTRITION WAS TOLERATING SMALL AMOUNT OF CLEAR LIQUIDS AND NOW NPO. PPN STARTED 01/11 AND DISCONTINUED DUE TO REPORTED BURNING. IF PPN TO RESTART, RECOMMEND REDUCE RATE TO 30 ML PER HOUR. PPN AT 30 ML PER HOUR PROVIDES 31 G PROTEIN, 72 G DEXTROSE, 367 KCALS. REPLETE LYTES NEEDED. FOLLOW FOR PPN TOLERANCE AND DIET ADVANCEMENT. SEE CLINICAL NUTRITION ASSESSMENT 01/12/25.
[2025-01-12 09:47] LABS: HBS Num1 5.28 mIU/mL (0-7.99); HBc Num1 0.26 S/CO (0.00-0.79); HBsAGNum1 0.34 S/CO (0.00-0.99); Hepatitis A Antibody IgM 0.17 Index (0-0.79); Hepatitis B Core Antibody Nonreactive (Nonreactive); Hepatitis B Surface Antigen Negative (Negative); ~Hepatitis A Antibody IgM Nonreactive (Nonreactive); ~Hepatitis B Surface Antibody NONREACTIVE (Nonreactive); ~Hepatitis C Antibody Nonreactive (Nonreactive)
[2025-01-12 09:48] VITALS: BMI 32.0
--- NOTE | 2025-01-12 10:21 | MHC.CM.PN ---
Per MD rounds patient not medically cleared for dc, continues w/ PPN. CM will continue to follow.
[2025-01-12] MEDS: Lactated Ringers 1,000 ML 100 ML IVCONT (12:29)
[2025-01-12 15:09] VITALS: BP 161/76; PULSE 74; RESP 18; TEMP 36.1; O2SAT 100
[2025-01-12 16:53] LABS: CMV DNA PCR Qn Source NOT GIVEN; CMV DNA Qn PCR NOT DETECTED Log IU/mL (NOT DETECTED); CMV DNA Qn Real Time PCR NOT DETECTED (NOT DETECTED)
[2025-01-12] MEDS: Sucralfate 1 GM TABLET PO ×2 (18:13→21:12)
[2025-01-12 19:33] VITALS: BP 114/70; PULSE 64; RESP 18; TEMP 36.6; O2SAT 98
[2025-01-12] MEDS: Parenteral Nutrition 720 ML 30 ML IV (21:13)
[2025-01-12] MEDS: 0.9 % Sodium Chloride Flush 3 ML SYRINGE IVFLUSH (21:27)
[2025-01-12] MEDS: Calcium Carbonate 750 MG TAB.CHEW PO (21:27)
[2025-01-12 21:53] LABS: Herpes Simplex Type 2 IgG <0.90 index
[2025-01-13 03:39] VITALS: BP 104/69; PULSE 57; RESP 18; TEMP 36.6; O2SAT 98
[2025-01-13] MEDS: metroNIDAZOLE/NS 500 MG/100 ML PIGGYBACK 100 MG IV ×3 (03:47→20:03)
[2025-01-13] MEDS: Omeprazole 20 MG CAPSULE.DR PO ×2 (06:12→16:22)
[2025-01-13 06:23] LABS: Anion Gap 12 (12-20); Blood Urea Nitrogen 7 mg/dL (9-16); Calcium 9.1 mg/dL (8.4-10.2); Carbon Dioxide 24 mmol/L (22-29); Chloride 108 mmol/L (96-108); Creatinine Clr Calc Pharmacy 170.6; Estimated Glomerular Filt Rate > 60; Glucose Random 90 mg/dL (60-115); Potassium 3.3 mmol/L (3.3-5.1); Sodium 141 mmol/L (135-145)
[2025-01-13 08:00] VITALS: BP 105/55; PULSE 58; RESP 16; TEMP 36.8; O2SAT 97
--- NOTE | 2025-01-13 08:06 | P.PNGS_ITS ---
Subjective Subjective Date of Service: 01/13/25 Interval history: Patient feels much improved with minimal right upper quadrant abdominal pain. Physical Exam 2 Vital Signs: Vital Signs: Last Vital Signs Temp 98.3 F 01/13/25 08:00 Pulse 58 01/13/25 08:00 Resp 16 01/13/25 08:00 BP 105/55 L 01/13/25 08:00 Pulse Ox 97 01/13/25 08:00 O2 Del Method Room Air 01/13/25 08:00 BMI result Body Mass Index 32.0 Const: General: comfortable Nutritional Appearance: well nourished O rientation/consciousness: patient oriented x3 Resp: Effort & Inspection: normal respiratory effort GI: Inspection: Yes normal to inspection Palpation (GI): Soft to palpation, Tenderness to palpation present (GI) in the RUQ, no guarding and not rigid Skin: Other: Warm and dry Neuro: General: patient oriented x3 Extrem: Other: No edema Objective Data Active Medications Calcium Carbonate (Calcium Carbonate 750 Mg Tab.Chew) 750 mg PO Q4H PRN PRN Reason: Heartburn Last Admin: 01/12/25 21:27 Dose: 750 mg Documented By: ESTHER Metronidazole (Flagyl) 500 mg in 100 mls @ 100 mls/hr IV Q8H [facility] Last Infusion: 01/13/25 04:47 Dose: Infused Documented By: ESTHER Lactated Ringer's (Lr) 1,000 mls @ 100 mls/hr IVCONT .Q10H [facility] Last Admin: 01/12/25 18:06 Dose: Not Given Documented By: CAITY Non-Admin Reason: off unit for Hida scan Nutrition (Parenteral) (Parenteral Nutrition) 720 mls @ 30 mls/hr IV .Q24H [facility]; Protocol Stop: 01/13/25 20:59 Last Infusion: 01/13/25 04:58 Dose: 30 mls/hr Documented By: ESTHER Lorazepam (Lorazepam 0.5 Mg Tablet) 0.5 mg PO Q8H PRN PRN Reason: anxiety/restlessness Last Admin: 01/12/25 21:27 Dose: 0.5 mg Documented By: ESTHER Magnesium Hydroxide (Milk Of Magnesia 30 Ml Oral.Susp) 30 ml PO DAILY PRN PRN Reason: Constipation Melatonin (Melatonin 3 Mg Tablet) 6 mg PO BEDTIME PRN PRN Reason: Insomnia Last Admin: 01/11/25 22:14 Dose: 6 mg Documented By: TOSHIA Morphine Sulfate (Morphine Sulfate 2 Mg/Ml Cartridge) 2 mg IVPUSH Q6H PRN; Protocol PRN Reason: Pain, Severe (Pain Scale 7-10) Last Admin: 01/10/25 18:14 Dose: 2 mg Documented By: CAITY Omeprazole (Omeprazole 20 Mg Capsule.Dr) 20 mg PO BID@0630,1630 [facility] Last Admin: 01/13/25 06:12 Dose: 20 mg Documented By: ESTHER Ondansetron HCl (Ondansetron Hcl 4 Mg/2 Ml Vial) 4 mg IVPUSH Q8H PRN PRN Reason: Nausea and Vomiting Last Admin: 01/10/25 22:58 Dose: 4 mg Documented By: RIKKI Oxycodone HCl (Oxycodone Hcl Immed Release 5 Mg Tablet) 5 mg PO Q6H PRN PRN Reason: Pain, Moderate(Pain Scale 4-6) Pharmacy Consult (Consult Rx Parenteral Nutrition Ordering) 1 each MISCELLANE DAILY PRN PRN Reason: Consult order Simethicone (Simethicone 80 Mg Tab.Chew) 80 mg PO QIDWMHS PRN PRN Reason: Gas Sodium Chloride (0.9 % Sodium Chloride Flush 3 Ml Syringe) 3 ml IVFLUSH QSHIFT [facility] Last Admin: 01/12/25 21:27 Dose: 3 ml Documented By: ESTHER Sucralfate (Sucralfate 1 Gm Tablet) 1 gm PO QIDACHS [facility] Last Admin: 01/12/25 21:12 Dose: 1 gm Documented By: ESTHER Labs 01/10/25 05:53 01/13/25 05:11 Labs: Laboratory Results - last 24 hr 01/09/25 01/09/25 01/13/25 15:18 22:46 05:11 Hold Purple Top SEE NOTE Anion Gap 12 Estim Creat Clear Calc 170.6 Estimated GFR > 60 Random Glucose 90 Calcium 9.1 CMV Specimen Source NOT GIVEN CMV Qnt PCR IU/mL NOT DETECTED CMV Qnt PCR log IU/mL NOT DETECTED Hepatitis A IgM Ab Nonreactive Hep Bs Antigen Negative Hep Bs Antibody NONREACTIVE Hep B Core Total Ab Nonreactive Hepatitis C Ab (EIA) Nonreactive HSV I IgG Ab 54.40 H HSV II IgG <0.90 Imaging HIDA: Radiologist's impression: Impressions Hepatobiliary Scan Nuclear Medicine 01/12/25 08:34 IMPRESSION: Abnormal gallbladder ejection fraction of 9% at 30 minutes. Patent cystic duct and CBD. Normal hepatic uptake. Electronically signed by: Bulmaro Naqvi MD 01/12/2025 04:58 PM [facility] [place] Procedures Date of Service Date of Service: 01/13/25 Progress Note: A&P Assessment and plan (1) Acute acalculous cholecystitis: Status: Acute Plan 24-year-old with complaints of right upper quadrant abdominal pain found to have elevated liver function tests with elevated transaminases. Findings of a thickened gallbladder wall noted by MRCP. Subsequent HIDA scan however reveals normal filling of the gallbladder without obstruction which rules out acalculous cholecystitis. We will hold off on surgery at this time. She does have evidence of biliary dyskinesia but this would not explain her elevated transaminases. Time Spent With Patient Time: Total time managing care of this patient today ____ minutes. Quality Stroke Does the patient have a stroke diagnosis?: No VTE Prior VTE?: No VTE Risk Level:: Medical - moderate - high VTE Device Contraindication: Treatment Not Indicated VTE Drug Contraindication: Treatment Not Indicated
--- NOTE | 2025-01-13 08:28 | P.PNIM_ITS ---
Subjective Subjective Date of Service: 01/13/25 Interval History: Seen in follow-up for acute hepatitis with intractable nausea and vomiting as well as syncope Interval history: No further syncopal episodes. Still with anorexia, epigastric pain, belching. Ate several crackers last night which made her very nauseas. Continues on ppn. Denies any body image issues or intentional withholding of food Review of Systems Review of Systems: Yes all other systems are reviewed and are negative Physical Exam 2 Vital Signs: Vital Signs: Last Vital Signs Temp 98.3 F 01/13/25 08:00 Pulse 58 01/13/25 08:00 Resp 16 01/13/25 08:00 BP 105/55 L 01/13/25 08:00 Pulse Ox 97 01/13/25 08:00 O2 Del Method Room Air 01/13/25 08:00 BMI result Body Mass Index 32.0 Objective Data Active Medications Calcium Carbonate (Calcium Carbonate 750 Mg Tab.Chew) 750 mg PO Q4H PRN PRN Reason: Heartburn Last Admin: 01/12/25 21:27 Dose: 750 mg Documented By: ESTHER Metronidazole (Flagyl) 500 mg in 100 mls @ 100 mls/hr IV Q8H [facility] Last Infusion: 01/13/25 04:47 Dose: Infused Documented By: ESTHER Lactated Ringer's (Lr) 1,000 mls @ 100 mls/hr IVCONT .Q10H [facility] Last Admin: 01/12/25 18:06 Dose: Not Given Documented By: CAITY Non-Admin Reason: off unit for Hida scan Nutrition (Parenteral) (Parenteral Nutrition) 720 mls @ 30 mls/hr IV .Q24H [facility]; Protocol Stop: 01/13/25 20:59 Last Infusion: 01/13/25 04:58 Dose: 30 mls/hr Documented By: ESTHER Lorazepam (Lorazepam 0.5 Mg Tablet) 0.5 mg PO Q8H PRN PRN Reason: anxiety/restlessness Last Admin: 01/12/25 21:27 Dose: 0.5 mg Documented By: ESTHER Magnesium Hydroxide (Milk Of Magnesia 30 Ml Oral.Susp) 30 ml PO DAILY PRN PRN Reason: Constipation Melatonin (Melatonin 3 Mg Tablet) 6 mg PO BEDTIME PRN PRN Reason: Insomnia Last Admin: 01/11/25 22:14 Dose: 6 mg Documented By: TOSHIA Morphine Sulfate (Morphine Sulfate 2 Mg/Ml Cartridge) 2 mg IVPUSH Q6H PRN; Protocol PRN Reason: Pain, Severe (Pain Scale 7-10) Last Admin: 01/10/25 18:14 Dose: 2 mg Documented By: CAITY Omeprazole (Omeprazole 20 Mg Capsule.Dr) 20 mg PO BID@0630,1630 [facility] Last Admin: 01/13/25 06:12 Dose: 20 mg Documented By: ESTHER Ondansetron HCl (Ondansetron Hcl 4 Mg/2 Ml Vial) 4 mg IVPUSH Q8H PRN PRN Reason: Nausea and Vomiting Last Admin: 01/10/25 22:58 Dose: 4 mg Documented By: RIKKI Oxycodone HCl (Oxycodone Hcl Immed Release 5 Mg Tablet) 5 mg PO Q6H PRN PRN Reason: Pain, Moderate(Pain Scale 4-6) Pharmacy Consult (Consult Rx Parenteral Nutrition Ordering) 1 each MISCELLANE DAILY PRN PRN Reason: Consult order Simethicone (Simethicone 80 Mg Tab.Chew) 80 mg PO QIDWMHS PRN PRN Reason: Gas Sodium Chloride (0.9 % Sodium Chloride Flush 3 Ml Syringe) 3 ml IVFLUSH QSHIFT [facility] Last Admin: 01/12/25 21:27 Dose: 3 ml Documented By: ESTHER Sucralfate (Sucralfate 1 Gm Tablet) 1 gm PO QIDACHS [facility] Last Admin: 01/12/25 21:12 Dose: 1 gm Documented By: ESTHER Labs 01/10/25 05:53 01/13/25 05:11 Labs: Laboratory Results - last 24 hr 01/09/25 01/09/25 01/13/25 15:18 22:46 05:11 Hold Purple Top SEE NOTE Anion Gap 12 Estim Creat Clear Calc 170.6 Estimated GFR > 60 Random Glucose 90 Calcium 9.1 CMV Specimen Source NOT GIVEN CMV Qnt PCR IU/mL NOT DETECTED CMV Qnt PCR log IU/mL NOT DETECTED Hepatitis A IgM Ab Nonreactive Hep Bs Antigen Negative Hep Bs Antibody NONREACTIVE Hep B Core Total Ab Nonreactive Hepatitis C Ab (EIA) Nonreactive HSV I IgG Ab 54.40 H HSV II IgG <0.90 Assessment and Plan (1) Vomiting: Status: Acute (2) Transaminitis: Status: Acute (3) Acute hepatitis: Status: Acute Plan This is a 24-year-old female with pertinent history of PCOS, ulcerative colitis not on medications, mood disorder who presents to the emergency department for evaluation of abdominal pain, nausea and vomiting and found to have acute hepatitis Acute hepatitis with conjugated hyperbilirubinemia, DDx viral, toxin LFTs are already treanding down as follow Total bili: 4.3 --> 3.6 --> 3.2--> 2.6-->1.9 AST: 1229 --> 888 --> 610--> 342-->201 ALT: 2133 --> 1703 --> 1320--> 1014-->795 Alk Phos: 141--> 132 --> 125--> 126-->124 Suspect etiology is viral. Per GI : Hep A strong possibility, other causes EBV. Yellow fever and malaria less likely as it is winter in [place]. Other than infectious etiology, differential would include budd chiaria, Autoimmune, wilsons, toxic liver injury, PSC due to her hx of presumed IBD MRCP shows some pericholecystic fluid, no choledocholithiasis. Possible acalculous cholecystitis. IV ceftriaxone and Flagyl (initiated 01/10) for empiric coverage General surgery following. HIDA results showing biliary dyskinesia per surgery. No cholecystectomy at this time. Per surgery if still unable to eat, can consider cholecystectomy Trend LFTs Supportive care with IV hydration, monitor coags Anorexia with nausea and vomiting in setting of above with epigastric pain- no ongoing vomiting supportive care, PRN antiemetics Last ate 01/04 per her report and tolerating minimal fluidsHas not eaten in 7 days with the exception of a banana 3 days ago and not tolerating adequate p.o. fluids. Attempted crackers 3/3 which made her nausea. 3/ still reports anorexia but would like to try something bland to eat Continue PPN omeprazole 20mg BID, carafate chetna, simethicone prn Syncope, likely orthostatic due to volume loss. reportedly had several episodes last night (3-2) witnessed by her friend. No recurrence overnight Continue cardiac monitoring IVF, PPN as above Question component of anxiety resulting in her lightheadedness. Ativan p.r.n. added Asymptomatic bacteriuria Urine culture negative Will continue ceftriaxone due to above. No UTI Gastroesophageal reflux disease Add omeprazole, Tums p.r.n. Mood disorder: No longer on fluoxetine DVT prophylaxis: None. Low risk. Patient is ambulatory. add scps Full code Patient requires ongoing inpatient stay due to p.o. intolerance on PPN with recurrent syncope Quality Stroke Does the patient have a stroke diagnosis?: No VTE Prior VTE?: No VTE Risk Level:: Medical - moderate - high VTE Device Contraindication: Treatment Not Indicated VTE Drug Contraindication: Treatment Not Indicated
[2025-01-13 08:48] LABS: Alanine Aminotransferase 795 U/L (0-31); Albumin Level 3.5 g/dL (3.5-5.0); Alkaline Phosphatase 124 U/L (39-117); Aspartate Amino Transferase 201 U/L (5-31); Bilirubin Direct 1.2 mg/dL (0.0-0.5); Bilirubin Total 1.9 mg/dL (0.0-1.0); Total Protein 6.4 g/dL (6.5-8.0)
[2025-01-13] MEDS: Sucralfate 1 GM TABLET PO ×4 (09:02→21:51)
--- NOTE | 2025-01-13 10:36 | MHC.CLN ---
F/U WAS TOLERATING SMALL AMOUNT OF CLEAR LIQUIDS AND NOW NPO NSG REPORTED NO COMPLAINTS OF BURNING WITH PPN OVERNIGHT NOTED PT REFUSED NEW IV SITE FOR PPN REVIEWED LABS DISCUSSED WITH PHARMACY RECOMMEND INCREASING PPN TO 50ML/HR TO PROVIDE 612KCALS, 120G DEXTROSE, 51G PROTEIN REPLETE LYTES NEEDED
[2025-01-13 14:00] VITALS: BMI 31.3
[2025-01-13 15:20] VITALS: BP 112/69; PULSE 54; RESP 16; TEMP 36.7; O2SAT 97
[2025-01-13 15:31] LABS: Magnesium 1.7 mg/dL (1.6-2.6); Phosphorus 4.1 mg/dL (2.7-4.5)
[2025-01-13] MEDS: 0.9 % Sodium Chloride Flush 3 ML SYRINGE IVFLUSH ×2 (16:22→21:52)
[2025-01-13 19:09] VITALS: BP 122/81; PULSE 72; RESP 18; TEMP 37.4; O2SAT 99
[2025-01-13 21:43] LABS: Ceruloplasmin 26 mg/dL (14-48)
--- NOTE | 2025-01-13 22:53 | PC.NURSE ---
Addendum entered by Elma Hough RN 01/14/25 00:25: PPN TOLERATED AND COMPLETED 29 Original Note: 2024- PATIENT ASKING IF SHE COULD TAKE A SHOWER, ALSO FEELING SHE DOESN'T NEED ADDITIONAL PARENTAL NUTRITION SHE TOLERATED DINNER ITEMS OF RICE, GREEN BEANS, AND POTATOES. EXPLAINED THE IMPORTANCE OF NUTRITION, TAKING IT SLOW, IV ABX, AND SHOWERING, HOWEVER, WILLING TO HELP MAKE HER COMFORTABLE POSSIBLE. PATIENT HAS BEEN HAVING A GOOD RAPPORT WITH [employer], THEREFORE, WENT OUT ON A REACH AND SENT HER A NOTE OF CONCERNS DUE TO HER PATIENTS COMFORT WITH HER AND OKAY IF SHE WAS OFF DUTY AND NOT TO RESPOND. SHE RESPONDED RIGHT AWAY; OKAY TO DISCONTINUE TELE MONITORING, OKAY TO STOP PPN TO SHOWER, THEN FINISH THIS BAG AND WILL PUT A HOLD ON NEXT ORDERED DOSE. PATIENT VERY SATISFIED WITH ALL ANSWERS. PT NOTED WITH HAVING HER MENSES AND ALSO PASSED A MEDIUM HARD BM, VOIDING FINE, NO N/V, BUT STILL FEELING ABDOMINAL DISCOMFORT ON AND OFF. MED TELE ALERTED TO DISCONTINUANCE OF MONITOR, PREVIOUS RHYTHM NSR, WITH ST WITH ACTIVITY, BUT BACK TO NSR AT REST. WILL CONTINUE TO MONITOR.
[2025-01-14] MEDS: traMADoL HCL 50 MG TABLET PO (02:47)
[2025-01-14 04:00] VITALS: BP 104/63; PULSE 76; RESP 18; TEMP 36.6; O2SAT 97
[2025-01-14] MEDS: metroNIDAZOLE/NS 500 MG/100 ML PIGGYBACK 100 MG IV ×2 (04:50→12:24)
[2025-01-14] MEDS: Omeprazole 20 MG CAPSULE.DR PO ×2 (05:55→12:23)
[2025-01-14 06:27] LABS: Anion Gap 12 (12-20); Blood Urea Nitrogen 7 mg/dL (9-16); Calcium 9.3 mg/dL (8.4-10.2); Carbon Dioxide 24 mmol/L (22-29); Chloride 109 mmol/L (96-108); Creatinine Clr Calc Pharmacy 159.4; Estimated Glomerular Filt Rate > 60; Glucose Random 94 mg/dL (60-115); Magnesium 1.8 mg/dL (1.6-2.6); Phosphorus 4.4 mg/dL (2.7-4.5); Potassium 3.5 mmol/L (3.3-5.1); Sodium 141 mmol/L (135-145)
[2025-01-14 06:49] VITALS: BP 100/58; PULSE 68; RESP 16; TEMP 36.6; O2SAT 97
[2025-01-14 07:29] LABS: Liver Kidney Microsomal Ab <=20.0 U (<=20.0)
--- NOTE | 2025-01-14 08:13 | P.PNIM_ITS ---
Subjective Subjective Date of Service: 01/14/25 Interval History: Seen in follow-up for acute hepatitis with intractable nausea and vomiting as well as syncope Interval history: No further syncopal episodes. Still with anorexia, epigastric pain, belching. Ate most of her dinner last night but reports had 7/10 epigastric pain with nausea and increased belching. At rest reports 4/10 pain. No further vomiting. Tolerating fluids Review of Systems Review of Systems: Yes all other systems are reviewed and are negative Physical Exam 2 Vital Signs: Vital Signs: Last Vital Signs Temp 97.9 F 01/14/25 06:49 Pulse 68 01/14/25 06:49 Resp 16 01/14/25 06:49 BP 100/58 L 01/14/25 06:49 Pulse Ox 97 01/14/25 06:49 O2 Del Method Room Air 01/14/25 06:49 BMI result Body Mass Index 31.3 Constitutional - Awake and Alert, No apparent distress Eyes - PERRLA, EOMI Cardiovascular - S1S2, RRR, No edema Respiratory - Normal lung expansion, Normal respiratory effort, No respiratory distress, CTA bilaterally Gastrointestinal - soft, ttp epigastrium. ND; +BS; No rebound or guarding - No CVA tenderness Extremities - no calf tenderness bilaterally, no swelling Musculoskeletal - Normal inspection, normal ROM Skin - Warm/Dry Neurological - Alert & oriented x3, CN II-XII in tact, 5/5 strength BUE and BLE Psychological - Appropriate affect Objective Data Active Medications Calcium Carbonate (Calcium Carbonate 750 Mg Tab.Chew) 750 mg PO Q4H PRN PRN Reason: Heartburn Last Admin: 01/12/25 21:27 Dose: 750 mg Documented By: ESTHER Metronidazole (Flagyl) 500 mg in 100 mls @ 100 mls/hr IV Q8H [facility] Last Infusion: 01/14/25 05:50 Dose: Infused Documented By: ESTHER Lactated Ringer's (Lr) 1,000 mls @ 100 mls/hr IVCONT .Q10H [facility] Last Infusion: 01/13/25 09:33 Dose: Infused Documented By: LINN Nutrition (Parenteral) (Parenteral Nutrition) 720 mls @ 30 mls/hr IV .Q24H [facility]; Protocol Last Infusion: 01/13/25 17:03 Dose: 30 mls/hr Documented By: LINN Lorazepam (Lorazepam 0.5 Mg Tablet) 0.5 mg PO Q8H PRN PRN Reason: anxiety/restlessness Last Admin: 01/12/25 21:27 Dose: 0.5 mg Documented By: ESTHER Magnesium Hydroxide (Milk Of Magnesia 30 Ml Oral.Susp) 30 ml PO DAILY PRN PRN Reason: Constipation Melatonin (Melatonin 3 Mg Tablet) 6 mg PO BEDTIME PRN PRN Reason: Insomnia Last Admin: 01/11/25 22:14 Dose: 6 mg Documented By: TOSHIA Morphine Sulfate (Morphine Sulfate 2 Mg/Ml Cartridge) 2 mg IVPUSH Q6H PRN; Protocol PRN Reason: Pain, Severe (Pain Scale 7-10) Last Admin: 01/10/25 18:14 Dose: 2 mg Documented By: CAITY Omeprazole (Omeprazole 20 Mg Capsule.Dr) 20 mg PO BID@0630,1630 [facility] Last Admin: 01/14/25 05:55 Dose: 20 mg Documented By: ESTHER Ondansetron HCl (Ondansetron Hcl 4 Mg/2 Ml Vial) 4 mg IVPUSH Q8H PRN PRN Reason: Nausea and Vomiting Last Admin: 01/10/25 22:58 Dose: 4 mg Documented By: RIKKI Oxycodone HCl (Oxycodone Hcl Immed Release 5 Mg Tablet) 5 mg PO Q6H PRN PRN Reason: Pain, Moderate(Pain Scale 4-6) Pharmacy Consult (Consult Rx Parenteral Nutrition Ordering) 1 each MISCELLANE DAILY PRN PRN Reason: Consult order Simethicone (Simethicone 80 Mg Tab.Chew) 80 mg PO QIDWMHS PRN PRN Reason: Gas Sodium Chloride (0.9 % Sodium Chloride Flush 3 Ml Syringe) 3 ml IVFLUSH QSHIFT [facility] Last Admin: 01/13/25 21:52 Dose: 3 ml Documented By: ESTHER Sucralfate (Sucralfate 1 Gm Tablet) 1 gm PO QIDACHS [facility] Last Admin: 01/13/25 21:51 Dose: 1 gm Documented By: ESTHER Labs 01/10/25 05:53 01/14/25 05:43 Labs: Laboratory Results - last 24 hr 01/09/25 01/13/25 01/14/25 22:46 05:11 05:43 Hold Purple Top SEE NOTE Anion Gap 12 Estim Creat Clear Calc 159.4 Estimated GFR > 60 Random Glucose 94 Calcium 9.3 Phosphorus 4.1 4.4 Magnesium 1.7 1.8 Total Bilirubin 1.9 H Direct Bilirubin 1.2 H AST 201 H ALT 795 H Alkaline Phosphatase 124 H Total Protein 6.4 L Albumin 3.5 Ceruloplasmin 26 Mary/Kid Microsom Ab Int <=20.0 Assessment and Plan (1) Vomiting: Status: Acute (2) Transaminitis: Status: Acute (3) Acute hepatitis: Status: Acute (4) Anorexia: Status: Acute Plan This is a 24-year-old female with pertinent history of PCOS, ulcerative colitis not on medications, mood disorder who presents to the emergency department for evaluation of abdominal pain, nausea and vomiting and found to have acute hepatitis Acute hepatitis with conjugated hyperbilirubinemia, DDx viral, toxin LFTs are already treanding down as follow Total bili: 4.3 --> 3.6 --> 3.2--> 2.6-->1.9 AST: 1229 --> 888 --> 610--> 342-->201 ALT: 2133 --> 1703 --> 1320--> 1014-->795 Alk Phos: 141--> 132 --> 125--> 126-->124 Suspect etiology is viral. Per GI : Hep A strong possibility, other causes EBV. Yellow fever and malaria less likely as it is winter in [place]. Other than infectious etiology, differential would include budd chiaria, Autoimmune, wilsons, toxic liver injury, PSC due to her hx of presumed IBD MRCP shows some pericholecystic fluid, no choledocholithiasis. Possible acalculous cholecystitis. IV ceftriaxone and Flagyl (initiated 01/10) dc 3. HIDA negative for cholecystitis very low suspicion General surgery following. HIDA results showing biliary dyskinesia per surgery. No cholecystectomy at this time. Per surgery if still unable to eat, can consider cholecystectomy Trend LFTs Supportive care with IV hydration, monitor coags Anorexia with nausea and vomiting in setting of above with epigastric pain- no ongoing vomiting supportive care, PRN antiemetics Last ate 01/04 per her report and tolerating minimal fluidsHas not eaten in 7 days with the exception of a banana 3 days ago and not tolerating adequate p.o. fluids. Attempted crackers 3/3 which made her nausea. 3/4 still reports anorexia but would like to try something bland to eat Hold PPN. 3/4 ate some dinner. Reports increased pain to 7/10, attempted breakfast this morning 8/10. without food /. Discussion had with patient, family friend and Dr. malik. Trial full liquid diet omeprazole 40mg BID, carafate chetna, simethicone prn 3/ add bentyl and reglan. If no improvement after 24-48 hours, consider EGD. GI following denies any history of anorexia nervosa or bulemia. Denies body image issues Syncope, likely orthostatic due to volume loss. reportedly had several episodes last night (01/10-2) witnessed by her friend. No recurrence overnight Continue cardiac monitoring IVF, PPN as above Question component of anxiety resulting in her lightheadedness. Ativan p.r.n. added Asymptomatic bacteriuria Urine culture negative Will continue ceftriaxone due to above. No UTI Gastroesophageal reflux disease Add omeprazole, Tums p.r.n. OCD outpt follow up with therapist No longer on fluoxetine DVT prophylaxis: None. Low risk. Patient is ambulatory. add scps Full code Case discussed with [facility] who has seen patient and reports multiple similar episodes. Pt gives verbal consent to speak with clinic. Please call with discharge plans once available. [phone] Patient requires ongoing inpatient stay due to p.o. intolerance and persistent abd pain of unclear etiology unable to tolerate solids Quality Stroke Does the patient have a stroke diagnosis?: No VTE Prior VTE?: No VTE Risk Level:: Medical - moderate - high VTE Device Contraindication: Treatment Not Indicated VTE Drug Contraindication: Treatment Not Indicated
[2025-01-14] MEDS: 0.9 % Sodium Chloride Flush 3 ML SYRINGE IVFLUSH ×3 (09:35→20:11)
[2025-01-14] MEDS: Sucralfate 1 GM TABLET PO ×4 (09:35→20:06)
[2025-01-14 10:07] LABS: EBV DNA PCR Not Detected (Not Detected); EBV Source Serum
[2025-01-14 12:04] LABS: Smooth Muscle Antibody <20 U (<20)
[2025-01-14 12:04] LABS: Alanine Aminotransferase 634 U/L (0-31); Albumin Level 3.8 g/dL (3.5-5.0); Alkaline Phosphatase 122 U/L (39-117); Aspartate Amino Transferase 127 U/L (5-31); Bilirubin Direct 0.9 mg/dL (0.0-0.5); Bilirubin Total 1.5 mg/dL (0.0-1.0); Total Protein 6.9 g/dL (6.5-8.0)
--- NOTE | 2025-01-14 13:18 | MHC.CM.PN ---
Per MD rounds not medically cleared for dc. No change to DC plan. CM will continue to follow.
--- NOTE | 2025-01-14 13:19 | P.PNGI_ITS ---
Subjective Subjective Date of Service: 01/14/25 Interval History: She feels maybe 15% improved since admission having pain - strecthy sensation when eating solids passing gas no fevers LFT coming down Critical Care Time (minutes): 0 Physical Exam 2 Vital Signs: Vital Signs: Last Vital Signs Temp 97.9 F 01/14/25 06:49 Pulse 68 01/14/25 06:49 Resp 16 01/14/25 06:49 BP 100/58 L 01/14/25 06:49 Pulse Ox 97 01/14/25 06:49 O2 Del Method Room Air 01/14/25 06:49 BMI result Body Mass Index 31.3 EXAM: GENERAL: The patient is well developed and nontoxic. VITAL SIGNS:see workflow HEENT: Nonicteric sclerae, PERRLA, EOMI. Oropharynx clear. Moist mucous membranes. Conjunctivae appear well perfused. No thyroid mass. CHEST: Chest wall is nontender. HEART: Regular rate and rhythm without murmurs. LUNGS: Clear to auscultation bilaterally. ABDOMEN: Soft, positive bowel sounds, mild epigastric tenderness, no organomegaly.no flank tenderness SKIN: No rash, no excessive bruising, petechiae, or purpura. NEUROLOGIC: Cranial nerves II-XII intact without motor/sensory deficit. Psych: normal affect Objective Data Labs 01/10/25 05:53 01/14/25 05:43 Labs: Laboratory Results - last 24 hr 01/09/25 01/13/25 01/14/25 22:46 05:11 05:43 Hold Purple Top SEE NOTE Sodium 141 Potassium 3.5 Chloride 109 H Carbon Dioxide 24 Anion Gap 12 BUN 7 L Creatinine 0.55 Estim Creat Clear Calc 159.4 Estimated GFR > 60 Random Glucose 94 Calcium 9.3 Phosphorus 4.1 4.4 Magnesium 1.7 1.8 Total Bilirubin 1.5 H Direct Bilirubin 0.9 H AST 127 H ALT 634 H Alkaline Phosphatase 122 H Total Protein 6.9 Albumin 3.8 Ceruloplasmin 26 Anti-Smooth Muscle Ab <20 Mary/Kid Microsom Ab Int <=20.0 EBV Source Serum EBV DNA (PCR) Not Detected Microbiology Microbiology Results: Microbiology 01/09/25 Unknown Urine clean catch - Clean Catch Midstream Urine Culture - Final No growth. Procedures Date of Service Date of Service: 01/14/25 Progress Note: A&P Assessment and plan (1) Acute hepatitis: Status: Acute Plan 1/ Acute hepatitis, LFT coming down, liver fucntion is normal- no evidence of liver failure, right now presumptive dx is viral etiology--pain with food maybe due to hepatitis or GB dyskinesia. gut dysmotility 2/2 inflammation PLAN: 1/ agree with PPI, carafate, can add regaln if she agrees-she is going to discuss with her aunt 2/ can add bentyl as well Time Spent With Patient Time: Total time managing care of this patient today ____ minutes. Quality Stroke Does the patient have a stroke diagnosis?: No VTE Prior VTE?: No VTE Risk Level:: Medical - moderate - high VTE Device Contraindication: Treatment Not Indicated VTE Drug Contraindication: Treatment Not Indicated
--- NOTE | 2025-01-14 15:57 | MHC.CLN ---
F/U PO INTAKE 0-25% DISCUSSED WITH MD TORRES D/C DIET ADVANCED TO BLAND-PT ATE RICE, GREEN BEANS, POTATO LAST EVENING RECOMMEND ADDING MAGIC CUP TID TO INCREASE KCALS SUPP TO PROVIDE 870KCALS, 27G PROTEIN WITH 100% ACCEPTANCE MONITOR PO INTAKE CLOSELY AND ENCOURAGE SUPPLEMENT
[2025-01-14 16:00] VITALS: BP 107/71; PULSE 63; RESP 16; TEMP 36.6; O2SAT 97
[2025-01-14] MEDS: Omeprazole 40 MG CAPSULE.DR PO (16:13)
[2025-01-14] MEDS: Dicyclomine HCl 10 MG CAPSULE PO ×2 (16:13→20:06)
[2025-01-14 18:58] LABS: Varicella IgM Antibody <=0.90 (<=0.90)
[2025-01-14 19:14] VITALS: BP 107/71; PULSE 82; RESP 18; TEMP 36.7; O2SAT 97
[2025-01-15] MEDS: traMADoL HCL 50 MG TABLET PO
[2025-01-15 04:00] VITALS: BP 108/61; PULSE 52; RESP 18; TEMP 36.4; O2SAT 97
[2025-01-15] MEDS: Omeprazole 40 MG CAPSULE.DR PO (06:07)
[2025-01-15 06:51] VITALS: BP 98/50; PULSE 55; RESP 15; TEMP 36.6; O2SAT 98
[2025-01-15 06:55] LABS: Alanine Aminotransferase 475 U/L (0-31); Albumin Level 3.7 g/dL (3.5-5.0); Alkaline Phosphatase 115 U/L (39-117); Anion Gap 14 (12-20); Aspartate Amino Transferase 81 U/L (5-31); Bilirubin Direct 0.8 mg/dL (0.0-0.5); Bilirubin Total 1.4 mg/dL (0.0-1.0); Blood Urea Nitrogen 9 mg/dL (9-16); Calcium 9.1 mg/dL (8.4-10.2); Carbon Dioxide 24 mmol/L (22-29); Chloride 108 mmol/L (96-108); Creatinine Clr Calc Pharmacy 151.1; Estimated Glomerular Filt Rate > 60; Glucose Random 83 mg/dL (60-115); Magnesium 1.9 mg/dL (1.6-2.6); Phosphorus 4.7 mg/dL (2.7-4.5); Potassium 3.6 mmol/L (3.3-5.1); Sodium 142 mmol/L (135-145); Total Protein 6.8 g/dL (6.5-8.0)
[2025-01-15] MEDS: Sucralfate 1 GM TABLET PO ×2 (07:56→10:54)
[2025-01-15] MEDS: Dicyclomine HCl 10 MG CAPSULE PO ×2 (07:56→10:54)
[2025-01-15 09:43] LABS: Lipase 21 U/L (8-78)
--- NOTE | 2025-01-15 10:49 | P.PNIM_ITS ---
Subjective Subjective Date of Service: 01/15/25 Interval History: seen and examined this morning follow up for abdominal pain pt reports persistent stretching pain in epigastrum Review of Systems Review of Systems: Yes all other systems are reviewed and are negative Constitutional Constitutional: Denies chills and Denies fever(s) Physical Exam 2 Vital Signs: Vital Signs: Last Vital Signs Temp 98 F 01/15/25 06:51 Pulse 55 01/15/25 06:51 Resp 15 01/15/25 06:51 BP 98/50 L 01/15/25 06:51 Pulse Ox 98 01/15/25 06:51 O2 Del Method Room Air 01/15/25 06:51 BMI result Body Mass Index 31.3 Const: General: cooperative, no acute distress, alert and awake Nutritional Appearance: obese Orientation/consciousness: patient oriented x3 Resp: Effort & Inspection: normal respiratory effort, able to speak in complete sentences, no respiratory distress and no use of accessory muscles Cardio: Rate: regular rate GI: Other: no guarding, no rebound Inspection: No distended Palpation (GI): Soft to palpation Neuro: General: patient oriented x3, moves all extremities and CN's II-XI intact bilaterally Objective Data Active Medications Calcium Carbonate (Calcium Carbonate 750 Mg Tab.Chew) 750 mg PO Q4H PRN PRN Reason: Heartburn Last Admin: 01/12/25 21:27 Dose: 750 mg Documented By: ESTHER Dicyclomine HCl (Dicyclomine Hcl 10 Mg Capsule) 10 mg PO QIDACHS [facility] Last Admin: 01/15/25 07:56 Dose: 10 mg Documented By: CHIKA Lactated Ringer's (Lr) 1,000 mls @ 100 mls/hr IVCONT .Q10H [facility] Last Infusion: 01/13/25 09:33 Dose: Infused Documented By: LINN Lorazepam (Lorazepam 0.5 Mg Tablet) 0.5 mg PO Q8H PRN PRN Reason: anxiety/restlessness Last Admin: 01/12/25 21:27 Dose: 0.5 mg Documented By: ESTHER Magnesium Hydroxide (Milk Of Magnesia 30 Ml Oral.Susp) 30 ml PO DAILY PRN PRN Reason: Constipation Melatonin (Melatonin 3 Mg Tablet) 6 mg PO BEDTIME PRN PRN Reason: Insomnia Last Admin: 01/11/25 22:14 Dose: 6 mg Documented By: TOSHIA Morphine Sulfate (Morphine Sulfate 2 Mg/Ml Cartridge) 2 mg IVPUSH Q6H PRN; Protocol PRN Reason: Pain, Severe (Pain Scale 7-10) Last Admin: 01/10/25 18:14 Dose: 2 mg Documented By: CAITY Omeprazole (Omeprazole 40 Mg Capsule.Dr) 40 mg PO BID@0630,1630 [facility] Last Admin: 01/15/25 06:07 Dose: 40 mg Documented By: RIKKI Ondansetron HCl (Ondansetron Hcl 4 Mg/2 Ml Vial) 4 mg IVPUSH Q8H PRN PRN Reason: Nausea and Vomiting Last Admin: 01/10/25 22:58 Dose: 4 mg Documented By: RIKKI Oxycodone HCl (Oxycodone Hcl Immed Release 5 Mg Tablet) 5 mg PO Q6H PRN PRN Reason: Pain, Moderate(Pain Scale 4-6) Simethicone (Simethicone 80 Mg Tab.Chew) 80 mg PO QIDWMHS PRN PRN Reason: Gas Sodium Chloride (0.9 % Sodium Chloride Flush 3 Ml Syringe) [facility] Last Admin: 01/14/25 20:11 Dose: 3 ml Documented By: RIKKI Sucralfate (Sucralfate 1 Gm Tablet) 1 gm PO QIDACHS [facility] Last Admin: 01/15/25 07:56 Dose: 1 gm Documented By: CHIKA Tramadol HCl (Tramadol Hcl 50 Mg Tablet) 50 mg PO Q6H PRN PRN Reason: Pain, Severe (Pain Scale 7-10) Last Admin: 01/15/25 00:00 Dose: 50 mg Documented By: RIKKI Labs 01/10/25 05:53 01/15/25 05:32 Labs: Laboratory Results - last 24 hr 01/09/25 01/14/25 01/15/25 22:46 05:43 05:32 Anion Gap 14 Estim Creat Clear Calc 151.1 Estimated GFR > 60 Random Glucose 83 Calcium 9.1 Phosphorus 4.7 H Magnesium 1.9 Total Bilirubin 1.5 H 1.4 H Direct Bilirubin 0.9 H 0.8 H AST 127 H 81 H ALT 634 H 475 H Alkaline Phosphatase 122 H 115 Total Protein 6.9 6.8 Albumin 3.8 3.7 Lipase 21 Anti-Smooth Muscle Ab <20 VZV IgM Antibody <=0.90 Assessment and Plan (1) Anorexia: Status: Acute Plan This is a 24-year-old female with pertinent history of PCOS, ulcerative colitis not on medications, mood disorder who presents to the emergency department for evaluation of abdominal pain, nausea and vomiting and found to have acute hepatitis Acute hepatitis with conjugated hyperbilirubinemia LFTs trending down Suspect viral etiology. Per GI : Hep A strong possibility, other causes EBV. Yellow fever and malaria less likely as it is winter in [place]. Other than infectious etiology, differential would include budd chiaria, Autoimmune, wilsons, toxic liver injury, PSC due to her hx of presumed IBD MRCP shows some pericholecystic fluid, no choledocholithiasis. Possible acalculous cholecystitis. IV ceftriaxone and Flagyl (initiated 01/10) dc 3. HIDA negative for cholecystitis very low suspicion General surgery following. HIDA results showing biliary dyskinesia per surgery. No cholecystectomy at this time Supportive care with IV hydration Anorexia with nausea and vomiting in setting of above with epigastric pain- no ongoing vomiting minimal po intake PPN d/c full liquid diet family friend and Dr. malik (pt aunt who is is consultant involved) omeprazole 40mg BID, carafate chetna, simethicone prn 01/14 add bentyl 01/15 pt agreed to trial reglan GI following denies any history of anorexia nervosa or bulemia. Denies body image issues Syncope, likely orthostatic due to volume loss. reportedly had several episodes (01/10-2) witnessed by her friend. No recurrence Continue cardiac monitoring Question component of anxiety resulting in her lightheadedness. Ativan p.r.n. added Asymptomatic bacteriuria Urine culture negative, abx d/c Gastroesophageal reflux disease Add omeprazole, Tums p.r.n. OCD outpt follow up with therapist No longer on fluoxetine unclear if this is playing a role in GI symptoms, consider psych evaluation for medication management DVT prophylaxis: None. Low risk. Patient is ambulatory. add scps Full code Case discussed with [facility] who has seen patient and reports multiple similar episodes. Pt gives verbal consent to speak with clinic. Please call with discharge plans once available. [phone] Patient requires ongoing inpatient stay due to p.o. intolerance and persistent abd pain of unclear etiology unable to tolerate solids Quality Stroke Does the patient have a stroke diagnosis?: No VTE Prior VTE?: No VTE Risk Level:: Medical - moderate - high VTE Device Contraindication: Treatment Not Indicated VTE Drug Contraindication: Treatment Not Indicated
[2025-01-15] MEDS: 0.9 % Sodium Chloride Flush 3 ML SYRINGE IVFLUSH (10:55)
[2025-01-15 11:16] LABS: Hepatitis A Antibody IgM 0.14 Index (0-0.79); ~Hepatitis A Antibody IgM Nonreactive (Nonreactive)
[2025-01-15] MEDS: Metoclopramide HCl 5 MG TABLET PO (11:21)
--- NOTE | 2025-01-15 12:43 | PM.DS ---
DS: Providers Provider Date of Service: 01/15/25 Date of admission: 01/09/25 22:04 Date of discharge: 01/15/25 Primary care physician: Cristela Barnard MD Consults: 01/09/25 22:05 Consult to Gastroenterology Routine Consulting Provider: Ralph Vazquez Reason for consultation: hepatitis 01/10/25 18:57 Consult to General Surgery Routine Consulting [place] [facility] [place] [facility] Reason for consultation: ?cholecystitis Attending physician on discharge: Parish Cortez Discharging clinician: Vonda Roche DS: Diagnosis Discharge Diagnosis (1) Anorexia: Status: Acute DS: Summary Hospital Course Hospital Course: From H&P on the day of admission This is a 24-year-old female with pertinent history of PCOS, ulcerative colitis not on medications, mood disorder who presents to the emergency department for evaluation of abdominal pain, nausea and vomiting. Patient states her symptoms started 5 days prior to presentation. Patient ate pasta for dinner 1 night and thinks her symptoms started soon after. She has been having epigastric pain which is constant, nonradiating and without any relieving factors. Also has been having nausea and nonbloody emesis. Unable to tolerate p.o. intake due to nausea and vomiting. Does have symptoms of gastroesophageal reflux disease. No history of liver disease in the past. States she does have ulcerative colitis which was diagnosed when she was in [place] but she is not on any medications for it. Did undergo endoscopy/colonoscopy previously. Patient also had an episode of syncope preceded by dizziness lightheadedness on the day of presentation. No chest pain or palpitations prior to the syncopal episode. No jerking movement of extremities. Denies Tylenol use. No new sexual partners. Patient also complains of change in odor of urine and urinary urgency. No fever, chills, shortness of breath, changes in bowel habits. Patient is currently only on as-needed medications for gastroesophageal reflux disease. She stopped taking fluoxetine 1 year ago. In the emergency department, AST, ALT and bilirubin found to be elevated. Gastroenterology was consulted who requested admission Acute hepatitis with conjugated hyperbilirubinemia Suspect viral etiology. Per GI : Hep A strong possibility, other causes EBV. Yellow fever and malaria less likely as it is winter in [place]. Other than infectious etiology, differential would include budd chiaria, Autoimmune, wilsons, toxic liver injury, PSC due to her hx of presumed IBD. tylenol level negative. MRCP shows some pericholecystic fluid, no choledocholithiasis. Possible acalculous cholecystitis. Initially treated with IV ceftriaxone and Flagyl (initiated 01/10) dc 01/14. HIDA negative for cholecystitis very low suspicion General surgery following. HIDA results showing biliary dyskinesia per surgery. No cholecystectomy at this time Supportive care with IV hydration, LFTs trending down significantly recommend outpatient repeat LFTs in one week Anorexia with nausea and vomiting in setting of above with epigastric pain. Acute hepatitis with no evidence of liver failure likely due to viral etiology as above. Pain with food maybe due to hepatitis or gallbladder dyskinesia versus gut dysmotility secondary to inflammation. treated with omeprazole 40mg BID, carafate chetna, simethicone prn and bentyl GI following. no indicated for inpatient endoscopy Treated conservatively, gradually improved and tolerating food, stable for discharge home. Syncope, likely orthostatic due to volume loss. reportedly had several episodes (01/10-2) witnessed by her friend. No recurrence Asymptomatic bacteriuria Urine culture negative, abx d/c Time Attestation Discharge Coordination Time (in mins): 36 Quality: Safe Use of Opioids Does Pt have an Active Cancer Diagnosis on the Problem List?: No Quality: Stroke Does the patient have a stroke diagnosis?: No Physical Exam Vital Signs: Vital Signs: Last Vital Signs Temp 98 F 01/15/25 06:51 Pulse 55 01/15/25 06:51 Resp 15 01/15/25 06:51 BP 98/50 L 01/15/25 06:51 Pulse Ox 98 01/15/25 06:51 O2 Del Method Room Air 01/15/25 06:51 BMI result Body Mass Index 31.3 Const: General: cooperative, alert and awake Nutritional Appearance: average body habitus Orientation/consciousness: patient oriented x3 Resp: Effort & Inspection: normal respiratory effort and able to speak in complete sentences Cardio: Rate: regular rate GI: Inspection: No distended Palpation (GI): Soft to palpation Neuro: General: patient oriented x3, moves all extremities and CN's II-XI intact bilaterally DS: Data Data Completed and Pending Labs on day of discharge: Laboratory Results - last 24 hr 01/09/25 01/15/25 01/15/25 22:46 05:32 10:21 Sodium 142 Potassium 3.6 Chloride 108 Carbon Dioxide 24 Anion Gap 14 BUN 9 Creatinine 0.58 Estim Creat Clear Calc 151.1 Estimated GFR > 60 Random Glucose 83 Calcium 9.1 Phosphorus 4.7 H Magnesium 1.9 Total Bilirubin 1.4 H Direct Bilirubin 0.8 H AST 81 H ALT 475 H Alkaline Phosphatase 115 Total Protein 6.8 Albumin 3.7 Lipase 21 Hepatitis A IgM Ab Nonreactive VZV IgM Antibody <=0.90 Discharge Plan Discharge Anticipated Discharge Date/Time: 01/15/25 12:49 Patient Disposition: Home, Self-Care Discharge Diagnosis: nausea and vomiting acute hepatitis Referrals: Cristela Barnard MD [Primary Care Provider] - 1 Week Discharge Medications: New dicyclomine 10 mg Capsule 10 mg PO QIDACHS 10 Days Qty: 40 0RF omeprazole 40 mg Capsule,Delayed Release(Dr/Ec) 40 mg PO DAILY 90 Days Qty: 90 0RF sucralfate 1 gram Tablet 1 g PO QIDACHS 10 Days Qty: 40 0RF simethicone [Gas Relief (simethicone)] 80 mg Tablet,Chewable 80 mg PO QIDWMHS PRN (Reason: Gas) Qty: 20 0RF Discharge Orders: Discharge Order (Routine); Ordered 01/15/25 Ordered By: Vonda Roche Activity on Discharge: As tolerated Stand Alone Forms: Patient Portal Discharge page Print Language: [place] Other Ambulatory Orders: Liver Panel (Routine) Timeframe: 1 Week Facility: [facility] - Location: Laboratory Ordered By: Vonda Roche Care Plan Goals: see below Health Concerns: acute hepatitis - probable viral in nature Plan of Treatment: Recommend to repeat liver function tests in 1 week continue PPI daily can use bentyl and simethicone as needed Take Carafate for the next 10 days Call to schedule follow-up appointment with primary provider/health center Assessment: see discharge summary
[2025-01-15 13:31] VITALS: BP 119/67; PULSE 69; RESP 15; TEMP 36.6; O2SAT 100
--- NOTE | 2025-01-15 13:39 | MHC.CM.PN ---
Patient medically cleared for dc home self care via [employer]
--- NOTE | 2025-01-15 14:04 | PC.NURSE ---
Pt expressed discomfort when taking off clear bandage from IV upon dc. No Redness or swelling noted.
[2025-01-15 14:13] LABS: Anti Nuclear Antibody Screen NEGATIVE (NEGATIVE)
[2025-01-16 19:29] LABS: Hepatitis E Virus HEV IgG DETECTED; Hepatitis E Virus HEV IgM DETECTED
[2025-01-16 23:28] LABS: Aldolase 56.2 U/L (<=8.1)
[2025-01-18 14:28] LABS: Soluble Liver Ag Autoantibody <20.1 U (0.0-20.0)
[2025-01-19 12:13] LABS: HCV Log PCR <1.18 NOT DETECTED Log IU/mL (NOT DETECTED); HepC Viral Load <15 NOT DETECTED IU/mL (NOT DETECTED)
[2025-01-21 11:30] LABS: Liver Cytosol (LC-1) Auto Ab NEGATIVE
== END 2025-01-15 14:03 | disposition home or self-care (01) ==
LOC: HO.ED 22:08 → HO.EDOVER 22:10 → HO.S3 23:33
PROVIDERS: Internal Medicine; Internal Medicine Gastroenterology; Physician Assistant; Admitting Provider Student in an Organized Health Care Education/Training Program; Emergency Provider Emergency Medicine; PCP General Practice; Visit Provider Physician Assistant Medical
DX: B17.9 Acute viral hepatitis, unspecified (principal); E28.2 Polycystic ovarian syndrome; F17.210 Nicotine dependence, cigarettes, uncomplicated; I95.1 Orthostatic hypotension; Z71.6 Tobacco abuse counseling; K21.9 Gastro-esophageal reflux disease without esophagitis; F39 Unspecified mood [affective] disorder; R82.71 Bacteriuria; K82.8 Other specified diseases of gallbladder; Z20.822 Contact with and (suspected) exposure to COVID-19
CPT/HCPCS: 0241U; 36415; 74177; 74181; 76705; 76856; 78227; 80048; 80053; 80076; 80143; 80307; 81001; 82085; 82140; 82248; 82390; 82550; 82728; 83520; 83540; 83690; 83735; 84100; 84478; 84702; 85025; 85610; 86015; 86038; 86140; 86308; 86376; 86695; 86696; 86704; 86706; 86709; 86787; 86790; 86803; 87086; 87340; 87497; 87522; 87798; 93005; 99285; A9537; J0696; J1836; J1885; J2270; J2405; J2470; J2805; J7120; Q9967

== ENCOUNTER → 2025-01-09 12:59 | Outpatient (BNV) | payer BC, SELFPAY | PROVIDERS: Admitting Provider Student in an Organized Health Care Education/Training Program; Emergency Provider Emergency Medicine; PCP General Practice; Visit Provider Internal Medicine Cardiovascular Disease | DX: I49.9 Cardiac arrhythmia, unspecified (principal) | CPT/HCPCS: 93010 ==

== ENCOUNTER → 2025-01-09 14:25 | Outpatient (BNV) | payer BC, SELFPAY | PROVIDERS: Emergency Provider Emergency Medicine; PCP General Practice; Visit Provider Radiology Diagnostic Radiology | DX: R10.11 Right upper quadrant pain (principal); R10.9 Unspecified abdominal pain | CPT/HCPCS: 74177; 76705 ==

== ENCOUNTER 2025-01-09 22:04 | Outpatient (BNV) | payer BC, SELFPAY | END 2025-01-12 08:34 | PROVIDERS: Admitting Provider Student in an Organized Health Care Education/Training Program; Emergency Provider Emergency Medicine; PCP General Practice; Visit Provider Radiology Diagnostic Radiology | DX: R10.11 Right upper quadrant pain (principal); K82.9 Disease of gallbladder, unspecified | CPT/HCPCS: 78227 ==

== ENCOUNTER 2025-01-09 22:04 | Outpatient (BNV) | payer BC, SELFPAY | END 2025-01-10 13:30 | PROVIDERS: Admitting Provider Student in an Organized Health Care Education/Training Program; Emergency Provider Emergency Medicine; PCP General Practice; Visit Provider Radiology Diagnostic Radiology | DX: R10.9 Unspecified abdominal pain (principal); R74.01 Elevation of levels of liver transaminase levels; K82.8 Other specified diseases of gallbladder | CPT/HCPCS: 74181 ==

== ENCOUNTER → 2025-01-09 22:04 | Outpatient (BNV) | payer BC, SELFPAY | PROVIDERS: Admitting Provider Student in an Organized Health Care Education/Training Program; Emergency Provider Emergency Medicine; PCP General Practice; Visit Provider Student in an Organized Health Care Education/Training Program | DX: R63.0 Anorexia (principal) | CPT/HCPCS: 99499 ==

== ENCOUNTER → 2025-01-09 22:04 | Outpatient (BNV) | payer BC, SELFPAY | PROVIDERS: Admitting Provider Student in an Organized Health Care Education/Training Program; Emergency Provider Emergency Medicine; PCP General Practice; Visit Provider Surgery | DX: K81.0 Acute cholecystitis (principal) | CPT/HCPCS: 99222; 99232 ==

== ENCOUNTER → 2025-01-09 22:04 | Outpatient (BNV) | payer BC, SELFPAY | PROVIDERS: Admitting Provider Student in an Organized Health Care Education/Training Program; Emergency Provider Emergency Medicine; PCP General Practice; Visit Provider Internal Medicine Gastroenterology | DX: B17.9 Acute viral hepatitis, unspecified (principal) | CPT/HCPCS: 99223 ==

== ENCOUNTER 2025-03-15 21:09 | Emergency (ER) | payer BC, SELFPAY ==
--- NOTE | 2025-03-15 21:12 | ECG_ITS ---
Test Reason : CHEST PAIN Blood Pressure : */* mmHG Vent. Rate : 73 BPM Atrial Rate : 73 BPM P-R Int : 160 ms QRS Dur : 76 ms QT Int : 374 ms P-R-T Axes : 52 28 15 degrees QTcB Int : 412 ms Sinus rhythm with marked sinus arrhythmia Otherwise normal ECG When compared with ECG of 09-Jan-2025 13:31, Nonspecific T wave abnormality no longer evident in Anterior leads Referred By: Generic ED Physician Electronically Signed By: ROSA HAMILTON
[2025-03-15 21:20] VITALS: BP 136/88; PULSE 76; RESP 18; TEMP 36.5; O2SAT 100; BMI 32.7
[2025-03-15 21:54] LABS: MANUAL DIFF FLAG NO
[2025-03-15 22:07] LABS: Basophils Percent Auto 0.4 % (0-2); Eosinophils Absolute Auto 0.1 X10*3/uL (0.0-0.4); Eosinophils Percent Auto 1.1 % (0-4); Hematocrit 36.6 % (37.0-47.0); Hemoglobin 12.5 g/dl (12.0-16.0); Imm Gran Abs Auto 0.02 X10*3/uL (0.00-0.03); Imm Gran Pct Auto 0.2 % (0.0-0.4); Lymphocytes Absolute Auto 3.2 X10*3/uL (1.2-4.9); Lymphocytes Percent Auto 32.7 % (20-40); Mean Corpuscular HGB Conc 34.2 g/dl (31.0-35.0); Mean Corpuscular Hemoglobin 28.3 pg (27.0-33.0); Mean Platelet Volume 11.1 fL (9.4-12.3); Monocytes Absolute Auto 0.8 X10*3/uL (0.1-1.2); Monocytes Percent Auto 7.6 % (2-11); Neutrophils Absolute Auto 5.7 x10*3/uL (2.0-8.3); Platelet Count 335 X10*3/uL (160-400); Red Blood Count 4.41 X10*6/uL (4.20-5.50); Red Cell Distribution Width 12.5 % (11.0-16.0); White Blood Count 9.8 X10*3/uL (4.8-10.8)
[2025-03-15 22:08] LABS: Alanine Aminotransferase 17 U/L (0-31); Albumin Level 4.6 g/dL (3.5-5.0); Alkaline Phosphatase 75 U/L (39-117); Anion Gap 12 (12-20); Aspartate Amino Transferase 20 U/L (5-31); Bilirubin Direct 0.1 mg/dL (0.0-0.5); Bilirubin Total 0.3 mg/dL (0.0-1.0); Blood Urea Nitrogen 11 mg/dL (9-16); Calcium 9.6 mg/dL (8.4-10.2); Carbon Dioxide 26 mmol/L (22-29); Chloride 108 mmol/L (96-108); Estimated Glomerular Filt Rate > 60; Glucose Random 103 mg/dL (60-115); Lipase 21 U/L (8-78); Potassium 4.2 mmol/L (3.3-5.1); Sodium 142 mmol/L (135-145); Total Protein 7.6 g/dL (6.5-8.0)
[2025-03-15 22:18] LABS: Troponin-I High Sensitivity < 2.7 ng/L (<3.5-17.0)
== END 2025-03-15 23:14 | disposition left against medical advice (07) ==
PROVIDERS: Emergency Provider Emergency Medicine; PCP General Practice
DX: R06.02 Shortness of breath (principal); R07.89 Other chest pain; Z79.899 Other long term (current) drug therapy
CPT/HCPCS: 36415; 80048; 80076; 83690; 84484; 85025; 93005; 99281; 99283

== ENCOUNTER → 2025-03-15 21:12 | Outpatient (BNV) | payer BC, SELFPAY | PROVIDERS: Emergency Provider Emergency Medicine; PCP General Practice; Visit Provider Internal Medicine | DX: R07.9 Chest pain, unspecified (principal) | CPT/HCPCS: 93010 ==